=== PATIENT | female | born 2005 | race Caucasian/White ===

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

== ENCOUNTER 2024-09-22 17:14 | Inpatient (IN) | payer OTHER, SELFPAY ==
[2024-09-22] VITALS (53 sets, daily range): BP systolic 112–163; BP diastolic 60–95; PULSE 74–131; TEMP 36.4–36.6; O2SAT 98–100; BMI 31.4
--- OUTSIDE RECORDS SUMMARY | 2024-09-22 17:40 | XMS_ITS | Encounter Summary ---
Author Organization [facility] Address [address] [place] [address] Phone Care Team Providers Care Portable Pinch Riveter Name Role Phone María Altman MD Primary Care Provider + Reason for Visit * Reason Comments Medication Refill Encounter Details Date Type Department Care Team (Late st Contact Info) Description 06/30/2021 Refill [facility] Family [facility] [address] [place] [address] María Altman MD [address] [place] [address] Medication Refill Social History Tobacco Use Types Packs/Day Years Used Date Smoking Tobacco: Never Smokeless Tobacco: Never Alcohol Use Standard Drinks/Week Comments No 0 (1 standard drink = 0.6 oz pur e alcohol) PHQ-2 Answer Date Recorded Total Score - Questions 1-9 0 07/13 Sexually Active Control Partners Comments Yes Male Comments Unknown Sex and Gender Information Value Date Recorded Sex Assigned at Not on file Legal Sex Female 1:31 PM COMPO CASTER Gender Identity Not on file Sexual Orientation Not on file COVID-19 Exposure Response Date Recorded In the last month, have you been in contact with someone who was confirmed or suspected to have Coronavirus / COVID-19? No / Unsure 06/17/2021 9:26 AM COMPO CASTER documented as of this encounter Miscellaneous Notes * Telephone Encounter - Jenise Zambrano - 07/01/2021 10:45 AM CST Mom informed RX called into patients pharmacy. Mom stated she would call back and set up an appointment for next month. O CASTER * Telephone Encounter - María Altman MD - 07/01/2021 9:51 AM COMPO CASTER Jenise, pt needs appt. Has not been seen in a year I believe. This is a medication for a chronic issue- so at the very least, I need to see her for asthma follow up. Thank you! I did refill the medication. O CASTER documented in this encounter Plan of Treatment Not on file documented as of this encounter Visit Diagnoses Not on filedocumented in this encounter Additional Health Concerns Assessment Noted Time PHQ-9 Depression Total Score: 0 07/24/19 21 1:00 PM COMPO CASTER documented as of this encounter Care Teams Portable Pinch Riveter Relationship Specialty Start Date End Date María Altman MD PCP - General Pediatrics 05/29/17 07/26/23 documented as of this encounter
--- OUTSIDE RECORDS SUMMARY | 2024-09-22 17:40 | XMS_ITS | Encounter Summary ---
Author Organization [facility] Address [address] [place] [address] Phone Care Team Providers Care Automated Equipment Engineer Technician Name Role Phone María Altman MD Primary Care Provider + Reason for Visit * Reason Comments Medication Refill Encounter Details Date Type Department Care Team (Late st Contact Info) Description [facility] [address] [place] [address] María Altman MD [address] [place] [address] Medication Refill Social History Tobacco Use Types Packs/Day Years Used Date Smoking Tobacco: Never Smokeless Tobacco: Never Alcohol Use Standard Drinks/Week Comments No 0 (1 standard drink = 0.6 oz pur e alcohol) Sexually Active Control Partners Comments Yes Male Comments Unknown Sex and Gender Information Value Date Recorded Sex Assigned at Not on file Legal Sex Female 1:31 PM AADC PLANS STAFF OFFICER Gender Identity Not on file Sexual Orientation Not on file documented as of this encounter Miscellaneous Notes * Telephone Encounter - Jenise Zambrano - 12/21/2019 2:15 PM CDT Voicemail left for mom stating patient needs to be seen in the office before prescriptions will be refilled. * Telephone Encounter - María Altman MD - 12/20/2019 12:48 PM CDT Pt had appointment but it was either cancelled or pt no showed. Needs another one before refill is sent. * Telephone Encounter - Shakira Craig, RN - 12/20/2019 9:13 AM CDT Requested Prescriptions Pending Prescriptions Disp Refills FLUoxetine (PROZAC) 10 MG Capsule [Pharmacy Med Name: FLUOXETINE HCL 10 MG CAPSULE] 90 Cap 0 Sig: Take 1 Cap by mouth daily. Not Delegated - Psychiatry: Antidepressants Failed - 12/19/2019 5:10 PM Failed - This refill cannot be delegated Passed - Valid encounter within last 12 months Past Office Visits Recent Outpatient Visits None Upcoming Appointments documented in this encounter Plan of Treatment Not on file documented as of this encounter Visit Diagnoses Not on filedocumented in this encounter Additional Health Concerns Assessment Noted Time PHQ-9 Depression Total Score: 0 05/29/20 17 9:00 AM AADC PLANS STAFF OFFICER documented as of this encounter Care Teams Automated Equipment Engineer Technician Relationship Specialty Start Date End Date María Altman MD PCP - General Pediatrics 05/29/17 07/26/23 documented as of this encounter
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
--- OUTSIDE RECORDS SUMMARY | 2024-09-22 17:41 | XMS_ITS | Data Portability ---
Author Organization [facility] Address [address] [place] [address] [place] [address] Assessment Encounter Date Assessment Date Assessment LastModified by Organization Details LastModified Time 08/12/2024 08/12/2024 Patient is __30_weeks . Discussed plan. [email or web address] Not available 08/12/2024 17:13:17 08/26/2024 08/26/2024 Patient is _32__weeks . Discussed plan. Not available 08/26/2024 12:56:40 09/02/2024 09/02/2024 Patient is _33__weeks . Discussed plan. [email or web address] Not available 09/02/2024 16:10:44 Plan of Treatment Reminders Order Date Submit Date Provider Last Modified By Organization Details Last Modified Time Details Appointments OB ROUTINE 2024 11:30A M Zara Larsen CNM Not available Not available Not available Lab None recorded. Referral None recorded. Procedures None recorded. Surgeries None recorded. Imaging US, obstetric , limited [email or web address], [address], [place], [address], 09/02/2024 18:02:25 US, obstetric , follow-up 2024 025 [email or web address] [facility], [address], [place], [address], 08/27/2024 22:46:33 Medication Orders hydrocodo ne 5 mg-acetam inophen 325 mg tablet 2024 025 [facility] #[id number], [address], [place], [address], 09/02/2024 15:41:17 Patient TargetsNo targets recorded. Patient InstructionsNo instructions recorded. Reason for Referral None Reported. Results Created Date Observation Date Name Description Value Unit Range Abnormal Flag Note LastModifiedBy Organization Detail LastModifiedTime 07/27/1907/27/2024 GTT - SUYAPAA ISAREL Hays, ACOG OB glucose, 1 hour screen 135 mg/dL 70-135 Not Available [facility] (Lab) [address], [place], [address], 07/28/2024 13:49:06 07/27/19 25 07/27/2024 HEMOG LOBIN (HGB) HGB 10.3 g/dL (based on docume nted legal sex) 11.6-1 5.4 low Not Available [facility] (Lab) [address] [place], [address], 07/28/2024 13:49:07 07/27/19 25 07/27/2024 HEMAT OCRIT (HCT) HCT 31.5 % (based on docume nted legal sex) 34.0-4 5.0 low Not Available [facility] (Lab) [address] [place], [address], 07/28/2024 13:49:07 07/27/19 25 07/27/2024 HIV 1/2 ANTIG EN/AN TIBOD Y, REFLE X CONFI RMATI ON HIV antigen/anti body Nonrea ctive nonrea ctive HIV-1 antig en and HIV-1 /HIV- 2 antib odies were not detec kinjal. No labor atory evide nce of HIV infec tion. Not Available [facility] (Lab) [address], [place], [address], 07/28/2024 13:49:08 07/27/19 25 07/27/2024 RPR SCREE N, REFLE X TITER /CONF IRMAT ION RPR screen Nonrea ctive nonrea ctive Not Available [facility] (Lab) [address], [place], [address], 07/28/2024 13:49:08 08/26/19 25 08/26/2024 US, obste tric, follo w-up No observ ation record ed. [facility] [address], [place], [address], 08/26/2024 17:10:18 08/26/19 25 08/26/2024 US, obste tric, follo w-up No observ ation record ed. [email or web address], [place], [address], 08/27/2024 23:08:28 09/02/19 25 09/02/2024 US, obste tric, limit ed No observ ation record ed. [email or web address] [address], [place], [address], 09/05/2024 23:23:05 09/02/19 25 09/02/2024 US, obste tric, limit ed No observ ation record ed. [facility] [address], [place], [address], 09/02/2024 17:56:21 Result Notes None recorded. Problems Name Problem SNOMED Code Status Onset Date Resolution Date Notes Provider Name and Address Organization Details Recorded Time Pregnanc y 53545926 Completed 202008/05/2021 Lolita shepherd [facility] 4 15:38:14 Asthma 537097271 Completed Marlys shepherd [facility] 2 10:34:27 Asthma 210309739 Active Marlys shepherd [facility] 2 10:34:27 Teenage pregnanc y 982750631 Completed 2020 Marlys Averykatiajerry colunga [facility] 2 10:34:27 Iron deficien cy anemia of pregnanc y 218453006 Completed 2020 IV iron - 05/24, r/s 06/03 inf to 06/04or 4 @ [facility] Marlys Averykaitajerry colunga [facility], [facility] 2 10:34:27 Pregnanc y 05572522 Completed 202203/30/2023 Lolita Costello [facility] 4 15:38:14 Anxiety in pregnanc y 2491821386 9109 Completed [facility] Shmuelyamil Fullerle [facility] 3 17:04:31 ultrasou nd scan abnormal 8013315204 9109 Completed EIF Shmuelyamil LepeBing [facility] 3 17:04:31 Large for gestatio n age fetus 646566144 Completed 96% 32w, 94%/97% AC at 36w) Shmuelyamil Fullerle [facility] 3 17:04:31 Anemia 848515759 Completed Iv iron order sent 01/19 and labs complete d Smhuelyamil LepeBing [facility] 3 17:04:31 Hypothyr oidism 94402426 Completed 2022 [facility] 25[facility]g [facility] 17:04:31 Mixed anxiety and depressi ve disorder 037327346 Active 2023 Lolita Costello [facility], [facility] 4 09:53:40 Pregnanc y 10185875 Active 2023 Lolita Costello [facility], [facility] 15:38:13 Anxiety 84726556 Active no current meds Zara Larsen CNM [address], [place], [address], [facility] 16:44:54 Large for gestatio n age fetus 205598256 Active history Zara Larsen CNM [address], [place], [address], [facility] 16:45:59 Problem Notes None recorded. Procedures Surgical History None recorded. Imaging Results Imaging Date Name Status LastModified by Organiz ation Details LastModified Time 08/26/2024 US, obstetric, follow-up completed [facility] [address], [place], [address], 08/26/2024 17:10:18 08/26/2024 US, obstetric, follow-up completed [email or web address], [place], [address], 08/27/2024 23:08:28 09/02/2024 US, obstetric, limited completed [email or web address] [address], [place], [address], 09/05/2024 23:23:05 09/02/2024 US, obstetric, limited completed [place] [address], [place], [address], 09/02/2024 17:56:21 Procedure Notes None recorded. Medical Equipment None Reported. Allergies Allergen ID Allergen Name Allergen Category Reaction Reaction Severity Criticality Documentation Date Start Date Code Code System Note Provider Name and Address Organization Details Recorded Time 68385 Substance with sulfonami de structure and antibacte rial mechanism of action (substanc e) medicatio n Not available Not available Not available 05/07/2021 [address] [address] [place], [place] - [facility] 16:39:08 Medications Name Sig Start Date Stop Date Status Note LastModified by Organization Details LastModified Time hydrocodone 5 mg-acetamin ophen 325 mg tablet TAKE 1 TABLET BY MOUTH EVERY 6 HOURS NEEDED FOR PAIN 09/02 completed Not Available Not Available Not Available metronidazo le 500 mg tablet TAKE 1 TABLET BY MOUTH 2 TIMES A DAY FOR 7 DAYS. DO NOT DRINK ALCOHOL WITH THIS MEDICATIO N. 02/16 completed Not Available Not Available Not Available levothyroxi ne 25 mcg tablet TAKE 1 TABLET BY MOUTH EVERY DAY 09/28 completed Not Available Not Available Not Available ofloxacin 0.3 % ear drops PLACE 5 DROPS IN AFFECTED EAR EVERY DAY FOR 7 DAYS 02/16 completed Not Available Not Available Not Available amoxicillin 875 mg tablet TAKE 1 TABLET BY MOUTH TWICE A DAY FOR 7 DAYS 02/16 completed Not Available Not Available Not Available triamcinolo ne acetonide 0.025 % topical cream APPLY A THIN LAYER TO AFFECTED AREA(S) TWICE DAILY 03/09 completed Not Available Not Available Not Available doxycycline monohydrate 100 mg capsule TAKE 1 CAPSULE BY MOUTH TWICE A DAY FOR 7 DAYS-NO SEXUAL INTERCOUR SE FOR 7DAYS & MEDICATIO N COMPLETE 02/16 completed Not Available Not Available Not Available fluoxetine 10 mg capsule TAKE 1 CAPSULE BY MOUTH EVERY DAY 11/20 completed Not Available Not Available Not Available albuterol sulfate HFA 90 mcg/actuati on aerosol inhaler 09/28 completed Not Available Not Available Not Available ondansetron 4 mg disintegrat ing tablet 09/28 completed Not Available Not Available Not Available sertraline 50 mg tablet TAKE 1 TABLET BY MOUTH EVERY DAY 02/23 completed Not Available Not Available Not Available doxycycline hyclate 100 mg tablet TAKE 1 TABLET BY MOUTH TWICE A DAY 03/25 completed Not Available Not Available Not Available buspirone 15 mg tablet TAKE 1 TABLET BY MOUTH TWICE A DAY active Not Available Not Available No t Available Vitamin 27 mg iron-0.8 mg tablet TAKE 1 TABLET BY MOUTH EVERY DAY 09/28 completed Not Available Not Available Not Available azithromyci n 500 mg tablet TAKE 2 TABLETS BY MOUTH ONCE FOR DOSE 02/16 completed Not Available Not Available Not Available escitalopra m 10 mg tablet TAKE 1 TABLET BY MOUTH EVERY DAY 08/05 completed Not Available Not Available Not Available nitrofurant oin monohydrate /macrocryst als 100 mg capsule 09/28 completed Not Available Not Available Not Available Flovent HFA 110 mcg/actuati on aerosol inhaler 09/28 completed Not Available Not Available Not Available 09/28 completed Not Available Not Available Not Available Triveen-Duo DHA 29 mg-1 mg-400 mg oral pack Take 1 pack by oral route. 01/04 completed Not Available Not Available Not Available 28 mg iron-800 mcg tablet 01/04 completed Not Available Not Available Not Available Blisovi 24 Fe 1 mg-20 mcg (24)/75 mg (4) tablet TAKE 1 TABLET BY MOUTH EVERY DAY 03/25 completed Not Available Not Available Not Available Vitals Date Recorded Body height Body mass index (BMI) Percentile per age and sex Body mass index (BMI) Body weight Systolic blood pressure Diastolic blood pressure Provider Name and Address Organization Details Last Updated DateTime 5 149.86 cm 96.72 % 34.9 kg/m2 01538.4 8001 g 110 mm[Hg] 74 mm[Hg] Lolita Costello [facility] 5 16:12:53 Date Recorded Body weight Body mass index (BMI) Percentile per age and sex Body mass index (BMI) Body height Systolic blood pressure Diastolic blood pressure Provider Name and Address Organization Details Last Updated DateTime 5 14785.6 6475 g 96.91 % 35.3 kg/m2 149.86 cm 114 mm[Hg] 72 mm[Hg] Lolita Costello [facility] 5 12:38:11 Date Recorded Body weight Systolic blood pressure Diastolic blood pressure Provider Name and Address Organization Details Last Updated DateTime 09/02/2024 26585.2571 2 g 107 mm[Hg] 72 mm[Hg] Lolita Costello [facility] 09/02/2024 15:40:18 Social History Question Answer Notes LastModified by Organizat ion Details LastModified Time Tobacco Smoking Status Never Smoker Lolita Costello [facility] 03/09/2023 16:02:28 Do You Have An Advance Directive? No [email or web address] Information n ot available 08/05/2022 What Is Your Level Of Alcohol Consumption? None [email or web address] Information not available 08/05/2022 If You Are , What Was Your Level Of Alcohol Consumption Prior To ? Occasional Information not available 03/23/2024 Are You Blind Or Do You Have Difficulty Seeing? No [email or web address] Information n ot available 08/05/2022 What Is Your Level Of Caffeine Consumption? Occasional [email or web address] Information not available 08/05/2022 How Much Tobacco Do You Chew? None [email or web address] Information not available 08/05/2022 In The 14 Days Before Symptom Onset, Have You Had Close Contact With A Laboratory-confirm ed COVID-19 While That Case Was Ill? No [email or web address] Information n ot available 08/05/2022 In The 14 Days Before Symptom Onset, Have You Had Close Contact With A Person Who Is Under Investigation For COVID-19 While That Person Was Ill? No [email or web address] Information not available 08/05/2022 Have You Been To An Area Known To Be High Risk For COVID-19? No [email or web address] Information not available 08/05/2022 Are You Deaf Or Do You Have Serious Difficulty Hearing? No [email or web address] Information not available 08/05/2022 What Type Of Diet Are You Following? REGULAR [email or web address] Information n ot available 08/05/2022 What Is The Highest Grade Or Level Of School You Have Completed Or The Highest Degree You Have Received? WH75618-8 [email or web address] Information not available 08/05/2022 What Is Your Occupation? Child [email or web address] Information not available 08/05/2022 Are There Any Guns Present In Your Home? No [email or web address] Information not available 08/05/2022 Do You Use Protection During Sex? No [email or web address] Information not available 08/05/2022 Do You Use Your Seat Belt Or Car Seat Routinely? Yes [email or web address] Information not available 08/05/2022 Do You Have Smoke And Carbon Monoxide Detectors In Your Home? Yes [email or web address] Information not available 08/05/2022 How Much Tobacco Do You Smoke? No [email or web address] Information not available 08/05/2022 Do You Feel Stressed (tense, Restless, Nervous, Or Anxious, Or Unable To Sleep At Night)? [id number] [email or web address] Information not available 08/05/2022 Do You Use Any Illicit Or Recreational Drugs? No [email or web address] Information not available 08/05/2022 Do You Use Sunscreen Routinely? No [email or web address] Information not available 08/05/2022 Have You Used IV Drugs? No [email or web address] Information not available 08/05/2022 Sex: Unknown Functional Status Question Answer Note LastModified by Organizat ion Details LastModified Time Do you have difficulty walking or climbing stairs? No Information not available 03/09/2023 Are you able to walk? YESWOREST [email or web address] Information not available 08/05/2022 Are you able to care for yourself? Yes [email or web address] Information not available 03/09/2023 Do you have difficulty dressing or bathing? No [email or web address] Information not available 03/09/2023 What is your exercise level? None [email or web address] Information not available 09/29/2023 Mental Status None recorded. Family History Relationship Description Onset Age of this Age Resolved Age Notes LastModified by Organization Details LastModified Time Father Asthma [email or web address] Not available 01/07/2023 09:45:47 Maternal Grandmother Diabetes mellitus [email or web address] Not available 01/07 09:45:47 Maternal Grandmother Hypertensive disorder [email or web address] Not available 01/07 09:45:47 Maternal Grandfather Malignant tumor of lung [email or web address] Not available 01/07 09:45:47 Maternal Uncle Seizure Not available 03/09/20 15:39:37 Medical History Condition Response Allergies (Food, seasonal, environmental ) Y Other N Breast Cancer N Drug/Latex Allergies/Reactions Y Blood Transfusion N Dermatologic Disorders N Lung Disease N Defects or Inherited Disease N Breast Problem N Gestational Diabetes N Hematologic disorders N Anesthesia Complications N History of STI N Deep Vein Thrombosis N Polycystic ovary syndrome N Anxiety Disorder Y Autoimmune disease N Arthritis N Infertility N Polyps N Acid Reflux (GERD) N History of abnormal pap N Cancer N Stroke N Varicosities N Neurologic/Epilepsy N Endometriosis N High Cholesterol N Headaches N Fibromyalgia N Kidney Disease N Heart Problems N Kidney or Bladder Problems N Thyroid Problems N GI Problems N Eating Disorder N Anemia N Art (IVF or FET) N Psychiatric Illness N Ovarian Cancer N Diabetes N Pulmonary (TB, Asthma) N Hepatitis/Liver Disease N No Past Medical History N Eczema N Urinary Tract Infection N Abuse/Domestic Violence N Asthma Y Trauma/Violence N Depression/ depression Y Heart Disease N Pre-Eclampsia N Hypertension N Osteoporosis N Thrombophilias N Gynecological History Statement/Question Response Date of Last Mammogram Date of LMP N Was last menstrual period normal Y STIs/STDs N Date of Last Colonoscopy Desired Control Method Unknown Abnormal Pap N On BCP's at Conception? N HPV Vaccine Y Duration of Flow (days) 5 Current Control Method Age at First Child 15 Are cycles usually normal N Frequency of Cycle (Q days) 28 Sexually Active? Y Menses Monthly N Date of DEXA bone scan Age of first menstrual cycle 11 Date of Last Pap Smear Sexual Problems? N LMP Unknown N Obstetrics History GPAL:G 3 P 2 0 0 2 Type Value Full Term 2 Living 2 Total 3 Past Encounters Encounter ID Performer Location Encounter Start Date Encounter Closed Date Diagnosis/Indication Diagnosis SNOMED-CT Code Diagnosis ICD10 Code Diagnosis Note [id number] Kate Mckeon [facility] [address] [address] 11/20/2020 12:17:29 11/20/2020 14:38:54 test positive 487033557 Z32.01 Risk factors addressed: Tobacco Cessation, Safe Sexual Practices, environmen amador, work hazards, travel restrictio ns, seat belt use. Eat a health well balanced diet, avoid alcohol, tobacco, and street drugs. Engage in daily low impact exercise, avoid temperatur e extremes, and cat, rodent, and bird feces. Avoid travel to areas where zika virus is a concern. Offered cf/sma/nip t. Pt desires all 3. Handouts given and discussed with patient. Childbirth classes recommende d. Dating u/s today. New OB sheet given. If previous , counseling . Pt verbalizes that she understand s the importance of above instructio ns. All questions were answered. Patient reminded to have annual well woman examinatio n and address [facility] . [id number] [facility] [address],[place] [address] 11/20/2020 12:25:39 11/20/2020 14:38:43 Uncertain viability of 687605647 O36.80X0 Z3A.01 [id number] Ирина Robbins MD [facility] [address],[place] [address] 01/04/2021 14:47:47 01/05/2021 21:54:47 Routine care 598795161 Z34.91 Asthma in 7230 986989 6965 J45.909 [id number] [facility] [address],[place] [address] 01/04/2021 14:48:24 01/04/2021 15:48:59 screening 577597269 Z36.82 [id number] Ирина Robbins MD [facility] [address],[place] [address] 01/30/2021 15:58:31 01/30/2021 17:25:40 Routine care 492344191 Z34.91 Teenage 676646 001 O09.619 [id number] [facility] [address],[place] [address] 02/26/2021 16:29:06 02/27/2021 10:26:33 screening for malformation 601245688 Z36.3 [id number] Ирина Robbins MD [facility] [address],[place] [address] 02/26/2021 16:29:31 02/27/2021 10:55:22 Teenage 741780794 O09.619 Routine an tenatal care 877145366 Z34.91 [id number] Ирина Robbins MD [facility] [address],[place] [address] 04/09/2021 16:28:16 04/10/2021 16:01:04 Teenage 340358303 O09.619 Asthma 402975414 J45.90 9 [id number] Ирина Robbins MD [facility] [address],[place] [address] 04/26/2021 14:32:13 04/26/2021 15:37:34 Routine care 219711368 Z34.91 Vaccination not done 203 0674427 9108 Z28.9 Asthma in 7230 520779 7586 J45.909 [id number] Christel Diallo [facility] [address],[place] [address] 05/02/2021 16:26:24 05/02/2021 17:09:05 [id number] [facility] [address],[place] [address] 05/14/2021 16:15:22 05/14/2021 17:52:25 Routine care 110805660 Z34.93 [id number] Ирина Robbins MD [facility] [address],[place] [address] 05/21/2021 16:34:16 05/21/2021 17:21:42 Iron deficiency anemia of 839705176 O99.019 Teenage 195986 001 O09.619 [id number] Ирина Robbins MD [facility] [address],[place] [address] 06/04/2021 18:21:56 06/05/2021 11:05:31 Teenage 147140520 O09.619 Iron defic iency anemia of 451042408 O99.019 [id number] [facility] [address],[place] [address] 06/13/2021 11:59:00 06/13/2021 13:47:09 Routine care 374145256 Z34.93 [id number] [facility] [address],[place] [address] 06/20/2021 15:27:35 06/21/2021 22:05:13 screening 256590028 Z36.9 [id number] [facility] [address],[place] [address] 06/27/2021 15:45:49 06/27/2021 16:13:08 Routine care 604556394 Z34.93 [id number] [facility] [address],[place] [address] 08/05/2021 15:48:17 08/05/2021 16:10:40 state 73106149 Z39.2 Continue to watch for signs/symp toms of post depression . Return one year from last pap smear for a well woman exam. Patient received above instructio ns, and questions have been answered. If you have any questions please call or respond to this email. Patient was made aware of the patient portal and may obtain a paper copy of today's plan if desired Contracept ion care management 508810069 Z30.9 Discussed all control options in great detail. Pt would like to start ocp. She is aware of the risks and benefits. She does not have any medical condition that is contraindi cated with the use of estrogen containing control. Pt will start her pills on the first thursday following the start of her period. She is aware it is not effective for control the first month. She is also aware of the importance of taking at the same time every day. Encouraged use of condoms as the pill does not protect against STD's. Will return in 3 months for med check. Consent was read and signed. Pt verbalized understand ing. [id number] Ирина Robbins MD [facility] [address],[place] [address] 03/25/2022 11:51:36 03/25/2022 14:05:56 depression 95627022 F53.0 Contracept ion care management 270273994 Z30.9 [id number] Christel Diallo [facility] [address],[place] [address] 08/05/2022 15:44:23 08/05/2022 17:23:49 Uncertain viability of 759950970 O36.80X0 Z3A.01 [id number] [facility] [address] [address] 08/05/2022 15:44:45 08/06/2022 17:21:58 Amenorrhea 53185974 N91.2 Venereal d isease screening 882055228 Z11.3 Anxiety 30471792 F41.9 Pt has a history of anxiety. Conservati ve measures have not helped and pt desires treatment with medication . We discussed options in detail and pt would like to start buspar. We discussed specific taper dosing and handout given and explained. Pt denies any thoughts of harming herself or others. If any worsening of symptoms or s/e from medication , she will notify us. Plan to RTC 2 weeks for med check. test positive 250963890 Z32.01 Risk factors addressed: Tobacco Cessation, Safe Sexual Practices, environmen amador, work hazards, travel restrictio ns, seat belt use. Eat a health well balanced diet, avoid alcohol, tobacco, and street drugs. Engage in daily low impact exercise, avoid temperatur e extremes, and cat, rodent, and bird feces. Avoid travel to areas where zika virus is a concern. Offered cf/sma/nip t. Pt desires NIPT at 10 weeks. Handouts given and discussed with patient. Childbirth classes recommende d. New OB sheet given. If previous , counseling . Pt verbalizes that she understand s the importance of above instructio ns. All questions were answered. Patient reminded to have annual well woman examinatio n and address [facility] . [id number] Kate Mckeon [facility] [address],[place] [address] 08/19/2022 16:48:46 08/19/2022 17:29:18 Anxiety 32161697 F41.9 Discussed treatment with zoloft including risks and benefits. Pt would like to start. Will return in 2 weeks for med check or sooner if any worsening of symptoms. [id number] Kate Mckeon [facility] [address] [address] 09/01/2022 16:46:09 09/03/2022 11:43:16 Routine care 551928280 Z34.93 Anxiety 40290489 F41.9 Discussed options with patient. She does want to try zoloft again but with food. If she is unable to tolerate, I have asked her to call us. If she is doing well with medication we can follow up in 2 weeks. [id number] Ирина Robbins MD [facility] [address],[place] [address] 09/15/2022 16:09:01 09/16/2022 16:36:29 Routine care 145525985 Z34.91 [id number] [facility] [address],[place] [address] 09/15/2022 16:12:10 09/15/2022 16:34:49 screening 892940237 Z36.82 [id number] Ирина Robbins MD [facility] [address],[place] [address] 10/13/2022 16:00:36 10/14/2022 10:05:58 Routine care 899951566 Z34.91 [id number] [facility] [address],[place] [address] 11/10/2022 15:49:58 11/10/2022 17:05:47 screening for malformation 160037443 Z36.3 [id number] Ирина Robbins MD [facility] [address],[place] [address] 11/10/2022 15:50:17 11/10/2022 17:52:24 Routine care [id number] Z34.91 ultr asound scan abnormal [id number] 9109 O28.3 Large for gestation age fetus 782665166 O36.62X1 [id number] Christel Lovell [facility] [address],[place] [address] 12/09/2022 16:29:32 12/09/2022 17:31:28 ultrasound scan abnormal [id number] 9109 O28.3 O36.61X0 Z3A.24 [id number] Ирина Robbins MD [facility] [address],[place] [address] 12/09/2022 16:29:46 12/10/2022 15:31:15 Large for gestation age fetus 633657494 O36.62X1 Routine an tenatal care 666481387 Z34.91 [id number] [facility] [address],[place] [address] 01/07/2023 09:02:07 01/07/2023 10:04:25 Large for gestation age fetus 624630703 O36.63X0 Z3A.28 [id number] Zara Larsen [facility] [address],[place] [address] 01/07/2023 09:02:26 01/07/2023 10:06:32 Routine care 436545652 Z34.93 [id number] Ириан Robbins MD [facility] [address],[place] [address] 01/19/2023 16:36:00 01/20/2023 10:25:44 Anemia of 22508856 O99.019 Subclinica l hypothyroidism 62808518 E02 [id number] [facility] [address],[place] [address] 02/02/2023 16:28:17 02/02/2023 17:28:59 Large for gestation age fetus 770081581 O36.63X0 O99.283 Z3A.32 [id number] Ирина Robbins MD [facility] [address],[place] [address] 02/02/2023 16:28:31 02/03/2023 11:02:01 Large for gestation age fetus 122841051 O36.63X0 O99.283 Z3A.32 54462115 Z33.1 [id number] Ирина Robbins MD [facility] [address],[place] [address] 02/16/2023 16:23:24 02/16/2023 16:57:30 Routine care 793589208 Z34.91 Large for gestation age fetus 236853026 O36.63X0 O99.283 Z3A.32 [id number] Christel Diallo [facility] [address],[place] [address] 03/02/2023 15:25:03 03/02/2023 16:33:40 Large for gestation age fetus 237869772 O36.63X0 O99.283 Z3A.36 [id number] Ирина Robbins MD [facility] [address],[place] [address] 03/02/2023 15:25:38 03/03/2023 10:36:09 Routine care 303528381 Z34.91 [id number] Ирина Robbins MD [facility] [address],[place] [address] 03/09/2023 15:39:29 03/11/2023 14:27:55 Routine care 227313427 Z34.91 [id number] Deborah Day [facility] [address],[place] [address] 09/29/2023 15:55:50 09/29/2023 16:37:38 Mixed anxiety and depressive disorder 792484780 F41.8 Discussed depression /anxiety symptoms today and management options reviewedsh e would like to start pharmacolo gic management : rx sent for sertraline , r/b/a reviewedco unseling encouraged - handout given on local counselors precaution s reviewed (if thoughts of harming self or others occur call 911)encour aged healthy lifestylem ed check in 4-6 weeks Contracept ion care management 955328605 Z30.9 All BC methods discussedi nt in mirena IUDr/b/a reviewedha ndout givencall with next period for insertion Time spent in visit is a total of 25 mins with at least 50% of visit consisting of counseling and review of plan of care. [id number] Iris Rodriguez [facility] [address],[place] [address] 02/17/2024 09:20:20 02/17/2024 09:51:42 screening 932258469 Z36.87 Z3A.01 [id number] [facility] [address],[place] [address] 02/17/2024 09:20:46 02/17/2024 10:11:25 Amenorrhea 91668985 N91.2 Venereal d isease screening 545070657 Z11.3 Irregular periods 679122 07 N92.6 +UPTcheck labsrepeat US next week [id number] Iris Rodriguez [facility] [address],[place] [address] 02/24/2024 16:59:13 02/25/2024 12:22:45 [id number] [facility] [address],[place] [address] 02/24/2024 17:20:28 02/25/2024 12:22:04 Amenorrhea 83745789 N91.2 reviewed precaution s and educationp ap not collectedp renatal vitamin dailyf/u new ob and first look10 week NIPS Venereal d isease screening 829729502 Z11.3 [id number] [facility] [address],[place] [address] 03/23/2024 15:25:22 03/23/2024 16:07:52 [id number] [facility] [address],[place] [address] 03/23/2024 15:26:19 03/23/2024 16:49:42 Gestation period, 10 weeks 98067510 Z3A.10 continue vitamin [facility]ine [facility] 341146582 Z34.93 [id number] [facility] [address],[place] [address] 04/05/2024 15:34:31 04/05/2024 16:06:40 screening 993322176 Z36.82 Z3A.12 [id number] [facility] [address],[place] [address] 04/20/2024 17:44:51 04/21/2024 07:48:39 Gestation period, 14 weeks 87780067 Z3A.14 continue vitamin [id number] Zara Larsen CNM [facility] [address],[place] [address] 05/13/2024 15:01:43 05/13/2024 16:04:03 Gestation period, 17 weeks 01338859 Z3A.17 continue vitamin [id number] [facility] [address],[place] [address] 06/01/2024 16:46:08 06/02/2024 12:58:40 screening for malformation 714023657 Z36.3 Z3A.20 [id number] [facility] [address],[place] [address] 06/01/2024 16:46:26 06/02/2024 12:24:19 Gestation period, 20 weeks 41021332 Z3A.20 continue vitamin [id number] [facility] [address],[place] [address] 06/29/2024 15:19:21 06/29/2024 16:09:46 screening 885989672 Z36.2 Z3A.24 [id number] FAYE EDWARD MD [facility] [address],[place] [address] 06/29/2024 15:19:41 06/29/2024 16:30:44 Mixed anxiety and depressive disorder 624622927 F41.8 - mood stable- no meds Gestation period, 24 weeks 718552671 Z3A.24 - continue PNV [id number] [facility] [address],[place] [address] 07/27/2024 16:26:41 07/27/2024 17:12:31 Gestation period, 28 weeks 46475554 Z3A.28 continue vitamin [id number] Zara Larsen CNM [facility] [address],[place] [address] 08/12/2024 15:57:23 08/15/2024 05:45:48 Gestation period, 30 weeks 36943469 Z3A.30 Toothache 90959600 K08.8 9 [id number] [facility] [address],[place] [address] 08/26/2024 11:09:29 08/26/2024 12:37:02 Large for gestation age fetus 166078009 O36.63X0 Z3A.32 [id number] Zara Larsen [facility] [address],[place] [address] 08/26/2024 11:09:45 08/26/2024 13:30:17 Gestation period, 32 weeks 7568503 Z3A.32 continue vitamin [id number] [facility] [address],[place] [address] 09/02/2024 14:13:54 09/02/2024 17:01:24 Suspected abnormality affecting management of mother [id number] O35.8XX0 Z3A.33 [id number] Zara Larsen, [facility] [address],[place] [address] 09/02/2024 14:14:16 09/02/2024 16:24:22 Gestation period, 33 weeks 91931498 Z3A.33 continue vitamin Health Concerns Section Related Observation LastModified by Organization Detai ls LastModified Time None Recorded Concern Status LastModified by Organization Details LastModified Time None Recorded Advance Directives Directive N: Payers Encounter Date Sequence Insurance Name Policy Number Policy Chapa Covered Member ID Chapa Member ID Guarantor Name 08/12/2024 1 [employer] [facility] [facility] [place] ([place] [id number] Zully Kudelka [id number] Zully Kudelka 08/26/2024 1 [employer] [facility] [place] [id number] Zully Kudelka [id number] Zully Kudelka 08/26/2024 1 [employer] [facility] [place] [id number] Zully Kudelka [id number] Zully Kudelka 09/02/2024 1 [facility] (MEDICAID HMO) [id number] 0003 Zully Kudelka [id number] Zully Kudelka 09/02/2024 1 [facility] (MEDICAID HMO) [id number] 0003 Zully Kudelka [id number] Zully Higuera OBGyn Episode Ob Episode Information Episode Created Date Number of Fetuses Patient Bloodtype Patient rh Status Prepregnancy Weight lbs Domestic Partner Domestic Partner Phone Father Name Researcher Status 01/05/20 21 1 AB Positive 169 CLOSED Fetus Data First Name Last Name Admitted to NICU Weight (g) Sex Living Outcome Pediatric Complications Fetus ID Race Codes Race Delivery Type [place] lobo 3543.68 75 F true Full Term [id number] Vaginal Delivery Problems Problem Notes Robbins pt!declines COVID vac cine Problem Name Start Date End Date Resolution Snomed Code Not e Asthma 213989136 Teenage 01/30/2021 772054673 Iron deficiency anemia of 05/15/2021 816604193 IV iron - 05/24 , r/s 06/03 inf to 06/04or24 @ [facility] Edward Calculation Initial Edward Date Initial Exam Date Initial Exam Provider Initial Ultrasound Date Last Menstrual Period Date Ultra Sound Weeks Gestation 07/12/2021 01/04/2021 11/20/2020 6 Eighteen To Twenty Week Edward Update Ultra Sound Date Fundal Height At Umbil Quickening Date Ultra Sound Latest Weeks Gestation Final Edward Confirmed By Final Edward Confirmed Date Final Edward Date Ultra Sound Latest Days Gestation 0 [email or web address] 01/04/2021 07/12/20 21 0 Pre-lidia Flowsheet Flowsheet Date 01/04/2021 Alexander Score Blood Edema Fundus Height Fundus Units Glucose Ketones Leukocytes Nitrite Labor Signs Protein Cervic Dilation Cervic Effacement Cervic Station neg none trace Type Weight in lbs Pre/Post Dialysis Refused Weight 159.066448568019 BP Diastolic BP Location Tested BP Systolic BP Type 75 124 Fetus Heart Rate Present A 160 Fetus Movement A No Comments Katy is a 15yo G1 at 13 w eeks who presents for care. Labs and NIPT done today. complicated only by history of asthma, for which she hasn't used albuterol in years. Discussed sometimes asthma worsens in , new albuterol HFA sent. Is lactose intolerant, recommended she add calcium supplementation to her PNV. Routine care. Flowsheet Date 01/04/2021 Alexander Score Blood Edema Fundus Height Fundus Units Glucose Ketones Leukocytes Nitrite Labor Signs Protein Cervic Dilation Cervic Effacement Cervic Station Type Weight in lbs Pre/Post Dialysis Refused BP Diastolic BP Location Tested BP Systolic BP Type Fetus Heart Rate Present Fetus Movement Comments Flowsheet Date 01/30/2021 Alexander Score Blood Edema Fundus Height Fundus Units Glucose Ketones Leukocytes Nitrite Labor Signs Protein Cervic Dilation Cervic Effacement Cervic Station neg none trace Type Weight in lbs Pre/Post Dialysis Refused Weight 157.317345199632 BP Diastolic BP Location Tested BP Systolic BP Type 76 120 Fetus Heart Rate Present A 150 Fetus Movement A Yes Comments Feeling well. AFP today. Alison jami next visit. Flowsheet Date 02/26/2021 Alexander Score Blood Edema Fundus Height Fundus Units Glucose Ketones Leukocytes Nitrite Labor Signs Protein Cervic Dilation Cervic Effacement Cervic Station Type Weight in lbs Pre/Post Dialysis Refused BP Diastolic BP Location Tested BP Systolic BP Type Fetus Heart Rate Present Fetus Movement Comments Flowsheet Date 02/26/2021 Alexander Score Blood Edema Fundus Height Fundus Units Glucose Ketones Leukocytes Nitrite Labor Signs Protein Cervic Dilation Cervic Effacement Cervic Station neg none trace Type Weight in lbs Pre/Post Dialysis Refused Weight 160.545129442801 BP Diastolic BP Location Tested BP Systolic BP Type 73 105 Fetus Heart Rate Present A 155 Fetus Movement A Yes Comments Doing well. Feels good. Tory elizabeth today complete and wnl. Flowsheet Date 04/09/2021 Alexander Score Blood Edema Fundus Height Fundus Units Glucose Ketones Leukocytes Nitrite Labor Signs Protein Cervic Dilation Cervic Effacement Cervic Station trace 28 Type Weight in lbs Pre/Post Dialysis Refused Weight 168.503651845259 BP Diastolic BP Location Tested BP Systolic BP Type 72 116 Fetus Heart Rate Present A 29 Fetus Movement A Yes Comments Doing well. Had missed appt- UDS next visit. DIscussed and encouraged Tdap, flu, and COVID vaccines. GCT today. Asthma has been fine. PRecaution.s Flowsheet Date 04/26/2021 Alexander Score Blood Edema Fundus Height Fundus Units Glucose Ketones Leukocytes Nitrite Labor Signs Protein Cervic Dilation Cervic Effacement Cervic Station neg none 27 trace Type Weight in lbs Pre/Post Dialysis Refused Weight 170.221609706224 BP Diastolic BP Location Tested BP Systolic BP Type 74 117 Fetus Heart Rate Present A 135 Fetus Movement A Yes Comments Doing well. Asthma has been fine. UDS today. GERD- discussed OTCs. Again discussed tdap, flu,, COVID vaccines and strongly encouraged. pt is considering. GCT was wnl. uds neg slm Flowsheet Date 05/02/2021 Alexander Score Blood Edema Fundus Height Fundus Units Glucose Ketones Leukocytes Nitrite Labor Signs Protein Cervic Dilation Cervic Effacement Cervic Station Type Weight in lbs Pre/Post Dialysis Refused BP Diastolic BP Location Tested BP Systolic BP Type Fetus Heart Rate Present Fetus Movement Comments Flowsheet Date 05/14/2021 Alexander Score Blood Edema Fundus Height Fundus Units Glucose Ketones Leukocytes Nitrite Labor Signs Protein Cervic Dilation Cervic Effacement Cervic Station none 31 Type Weight in lbs Pre/Post Dialysis Refused Weight 173.774851436390 BP Diastolic BP Location Tested BP Systolic BP Type 85 129 Fetus Heart Rate Present A 143 Fetus Movement A Yes Comments Doing well. Having a girl Bernardino miranda. Has had a couple contractions. Precautions discussed. Encouraged to call and schedule pre admit. Planning epidural for pain management. Encouraged vaccines. Pt declines vaccines for now. Will start looking for pedi. Flowsheet Date 05/21/2021 Alexander Score Blood Edema Fundus Height Fundus Units Glucose Ketones Leukocytes Nitrite Labor Signs Protein Cervic Dilation Cervic Effacement Cervic Station neg none 31 trace Type Weight in lbs Pre/Post Dialysis Refused Weight 177.478530530697 BP Diastolic BP Location Tested BP Systolic BP Type 76 121 Fetus Heart Rate Present A 135 Fetus Movement A Yes Comments Doing well. Hgb was 8.8, zhanna l start slow FE and working on scheduling iron infusions. Iron panel today. Will do flu and Tdap, does not want COVID vaccine, aware of risks. She is asking about induction prior to shayla. we discussed that we cannot induce before 39w without medical reasons, so it will likely be after shayla. Flowsheet Date 06/04/2021 Alexander Score Blood Edema Fundus Height Fundus Units Glucose Ketones Leukocytes Nitrite Labor Signs Protein Cervic Dilation Cervic Effacement Cervic Station neg none 34 trace Type Weight in lbs Pre/Post Dialysis Refused Weight 181.123394715137 BP Diastolic BP Location Tested BP Systolic BP Type 75 119 Fetus Heart Rate Present A 140 Fetus Movement A Yes Comments Doing well. Second IV iron t randa. UDs next visit. Preregistration done, Labor precautions given. Flowsheet Date 06/13/2021 Alexander Score Blood Edema Fundus Height Fundus Units Glucose Ketones Leukocytes Nitrite Labor Signs Protein Cervic Dilation Cervic Effacement Cervic Station none 37 Type Weight in lbs Pre/Post Dialysis Refused Weight 179.787200896482 BP Diastolic BP Location Tested BP Systolic BP Type 70 109 Fetus Heart Rate Present A 141 Fetus Movement A Yes Comments Doing well. Occasional contr actions. Labor precautions discussed. Pre admit today. Flowsheet Date 06/20/2021 Alexander Score Blood Edema Fundus Height Fundus Units Glucose Ketones Leukocytes Nitrite Labor Signs Protein Cervic Dilation Cervic Effacement Cervic Station none 38 4cm Type Weight in lbs Pre/Post Dialysis Refused Weight 180.286399578612 BP Diastolic BP Location Tested BP Systolic BP Type 85 126 Fetus Heart Rate Present A 138 Fetus Movement A Yes Comments Doing well. Labor precaution s given. Only occasional contractions. Flowsheet Date 06/27/2021 Alexander Score Blood Edema Fundus Height Fundus Units Glucose Ketones Leukocytes Nitrite Labor Signs Protein Cervic Dilation Cervic Effacement Cervic Station none 38 4cm 70% -2 Type Weight in lbs Pre/Post Dialysis Refused Weight 180.603844693117 BP Diastolic BP Location Tested BP Systolic BP Type 77 120 Fetus Heart Rate Present A 125 Fetus Movement A Yes Comments Doing well. Occasional contr actions. Discussed labor precautions. Cervix 4-5. Menstrual History Last Menstrual Date Menses Monthly On Bcp Conception Prior Menses Frequency Hcg Plus Date Menarche Onset Age Genetic Screening And Infection History Question Response Note Mental Retardation/Autism false Patient's Age Will Be 35 Years Or Older At Estim ated Date of Delivery false Thalassemia (Citizen Of [place], Beninese, Mediterranean, Or Background): MCV < 80 false Neural Tube Defect (Meningomyelocele, Spina Bifi da, Or Anencephaly) false Congenital Heart Defect false Down Syndrome false Frank-Sachs (eg, Caodaism, Cajun, Slovenian-[place]) f alse Armando Disease false Sickle Cell Disease Or Trait () false Hemophilia Or Other Blood Disorders false Muscular Dystrophy false Cystic Fibrosis false Vulcan's Chorea false Intellectual Disability/Autism false If Yes, Was Person Tested For Fragile X? false Other Inherited Genetic Or Chromosomal Disorder false Maternal Metabolic Disorder (eg, Type 1 Diabetes , PKU) false Patient Or Baby's Father Had A Child With Defects Not Listed Above false Recurrent Loss, Or A Stillbirth false Medications (including Suppl ements, Vitamins, Herbs, OTC Drugs), Illicit/Recreational Drugs, Alcohol false If Yes, Agent(s) And Strength/Dosage false Any Other Genetic History false Live With Someone With TB Or Exposed To TB false Patient Or Partner Has History Of Genital Herpes false Rash Or Viral Illness Since Last Menstrual Perio d false History Of STD, Gonorrhea, Chlamydia, HPV, Syphi lis false Other Infection History false History of HIV false History of Hepatitis false Prior GBS-infected child false Hemoglobinopathy Or Carrier false Other Structural Defect false Recent Travel History Outside of Country false Delivery Information Delivery Date Delivery Type Labor Anesthesia Weeks Gestation Incision Type Labor Labor Length Hrs Delivered By Post Complications Tubal Sterilization Discharge Date Comments 1 Sponta neous Regional-Ep idural 38.2 false Linda Kate CNM Iron Deficienc y Anemia Discharge Information Feeding Method Contraceptive Method Maternal HG B and HCT Levels Ob Episode Information Episode Created Date Number of Fetuses Patient Bloodtype Patient rh Status Prepregnancy Weight lbs Domestic Partner Domestic Partner Phone Father Name Researcher Status 09/16/19 23 1 AB Positive 174 CLOSED Fetus Data First Name Last Name Admitted to NICU Weight (g) Sex Living Outcome Pediatric Complications Fetus ID Race Codes Race Delivery Type Adalyn 3713.78 45 F true Full Term bodyx1, E[place] [id number] Vaginal Delivery Problems Problem Notes Itzel pt Problem Name Start Date End Date Resolution Snomed Code Not e Anxiety in 208685853 74920 declines meds ultrasound scan abnormal [id number] EIF Large for gestation age fetus 000227193 96% 32w, 94%/97 % AC at 36w) Anemia 801110601 Iv iron or ernesto sent 01/19 and labs completed Hypothyroidism 01/19/2023 MEDICATION [id number] lev o 25mcg Edward Calculation Initial Edward Date Initial Exam Date Initial Exam Provider Initial Ultrasound Date Last Menstrual Period Date Ultra Sound Weeks Gestation 03/30/2023 09/15/2022 08/05/2022 6 Eighteen To Twenty Week Edward Update Ultra Sound Date Fundal Height At Umbil Quickening Date Ultra Sound Latest Weeks Gestation Final Edward Confirmed By Final Edward Confirmed Date Final Edward Date Ultra Sound Latest Days Gestation 0 [email or web address] 09/15/2022 03/30/20 23 0 Pre- Flowsheet Flowsheet Date 09/15/2022 Alexander Score Blood Edema Fundus Height Fundus Units Glucose Ketones Leukocytes Nitrite Labor Signs Protein Cervic Dilation Cervic Effacement Cervic Station neg none none trace Type Weight in lbs Pre/Post Dialysis Refused Weight 176.659756739401 BP Diastolic BP Location Tested BP Systolic BP Type 72 110 Fetus Heart Rate Present A 150 Fetus Movement A No Comments Katy is a 16yo at 12.1 for care. Her first was only complicated by anemia for which she received IV iron. She has anxiety, but is not taking medication. Was prescribed buspar and zoloft, doesn't want to take anything. States she is functional and stable without. Precautions given. Labs today. Already had NIPT wnl. Declines COVID vaccines. NT wnl. Flowsheet Date 10/13/2022 Alexander Score Blood Edema Fundus Height Fundus Units Glucose Ketones Leukocytes Nitrite Labor Signs Protein Cervic Dilation Cervic Effacement Cervic Station neg none none trace Type Weight in lbs Pre/Post Dialysis Refused Weight 176.495513020741 BP Diastolic BP Location Tested BP Systolic BP Type 78 123 Fetus Heart Rate Present A 160 Fetus Movement A No Comments Doing great, no concerns. An atomy US next visit. Flowsheet Date 11/10/2022 Alexander Score Blood Edema Fundus Height Fundus Units Glucose Ketones Leukocytes Nitrite Labor Signs Protein Cervic Dilation Cervic Effacement Cervic Station Type Weight in lbs Pre/Post Dialysis Refused BP Diastolic BP Location Tested BP Systolic BP Type Fetus Heart Rate Present Fetus Movement Comments Flowsheet Date 11/10/2022 Alexander Score Blood Edema Fundus Height Fundus Units Glucose Ketones Leukocytes Nitrite Labor Signs Protein Cervic Dilation Cervic Effacement Cervic Station neg none none trace Type Weight in lbs Pre/Post Dialysis Refused Weight 177.816848212911 BP Diastolic BP Location Tested BP Systolic BP Type 62 120 Fetus Heart Rate Present A 145 Fetus Movement A Yes Comments Doing well, no concerns. US today anatomy complete and wnl. EIF present, discussed. EFW 96%, will repeat growth 4w. Flowsheet Date 12/09/2022 Alexander Score Blood Edema Fundus Height Fundus Units Glucose Ketones Leukocytes Nitrite Labor Signs Protein Cervic Dilation Cervic Effacement Cervic Station Type Weight in lbs Pre/Post Dialysis Refused BP Diastolic BP Location Tested BP Systolic BP Type Fetus Heart Rate Present Fetus Movement Comments Flowsheet Date 12/09/2022 Alexander Score Blood Edema Fundus Height Fundus Units Glucose Ketones Leukocytes Nitrite Labor Signs Protein Cervic Dilation Cervic Effacement Cervic Station neg none none trace Type Weight in lbs Pre/Post Dialysis Refused Weight 177.317777062783 BP Diastolic BP Location Tested BP Systolic BP Type 80 118 Fetus Heart Rate Present A 155 Fetus Movement A Yes Comments Doing fine, no concerns exce pt back pain, discussed comfort measures. US today 98%, EIF stable, breech. Will continue growth US for LGA. GCT next visit. Flowsheet Date 01/07/2023 Alexander Score Blood Edema Fundus Height Fundus Units Glucose Ketones Leukocytes Nitrite Labor Signs Protein Cervic Dilation Cervic Effacement Cervic Station Type Weight in lbs Pre/Post Dialysis Refused BP Diastolic BP Location Tested BP Systolic BP Type Fetus Heart Rate Present Fetus Movement Comments Flowsheet Date 01/07/2023 Alexander Score Blood Edema Fundus Height Fundus Units Glucose Ketones Leukocytes Nitrite Labor Signs Protein Cervic Dilation Cervic Effacement Cervic Station neg none none trace Type Weight in lbs Pre/Post Dialysis Refused Weight 183.741125113428 BP Diastolic BP Location Tested BP Systolic BP Type 62 109 Fetus Heart Rate Present Fetus Movement A Yes Comments EFW 88%, EIF not visible, GC T today, ok for tdap, precautions reviewed , plan 2 week f/u and 4 week growth Flowsheet Date 01/19/2023 Alexander Score Blood Edema Fundus Height Fundus Units Glucose Ketones Leukocytes Nitrite Labor Signs Protein Cervic Dilation Cervic Effacement Cervic Station neg trace 32 none trace Type Weight in lbs Pre/Post Dialysis Refused Weight 183.233344331282 BP Diastolic BP Location Tested BP Systolic BP Type 71 116 Fetus Heart Rate Present A 130 Fetus Movement A Yes Comments Doing well. GCT wnl. Hgb 9.0 . Required IV iron in last and prefers to do that than try PO iron. Will order. Growth US next visit. Synthroid 25mcg for subclinical hypothyroidism. Flowsheet Date 02/02/2023 Alexander Score Blood Edema Fundus Height Fundus Units Glucose Ketones Leukocytes Nitrite Labor Signs Protein Cervic Dilation Cervic Effacement Cervic Station Type Weight in lbs Pre/Post Dialysis Refused BP Diastolic BP Location Tested BP Systolic BP Type Fetus Heart Rate Present Fetus Movement Comments Flowsheet Date 02/02/2023 Alexander Score Blood Edema Fundus Height Fundus Units Glucose Ketones Leukocytes Nitrite Labor Signs Protein Cervic Dilation Cervic Effacement Cervic Station neg trace 35 none trace Type Weight in lbs Pre/Post Dialysis Refused Weight 188.763913541659 BP Diastolic BP Location Tested BP Systolic BP Type 69 110 Fetus Heart Rate Present A 135 Fetus Movement A Yes Comments Doing ok. US today 96%, AC 9 8%. Last baby was7-13. IV iron starting . Has not done Tdap yet, encouraged. Precautions given. Flowsheet Date 02/16/2023 Alexander Score Blood Edema Fundus Height Fundus Units Glucose Ketones Leukocytes Nitrite Labor Signs Protein Cervic Dilation Cervic Effacement Cervic Station neg none 36 none trace Type Weight in lbs Pre/Post Dialysis Refused Weight 187.231509657449 BP Diastolic BP Location Tested BP Systolic BP Type 74 116 Fetus Heart Rate Present A 135 Fetus Movement A Yes Comments Doing well. Rare contraction s. Doing Tdap soon. Has IV iron #4 Thursday. Growth and GBS next. precautions given. Flowsheet Date 03/02/2023 Alexander Score Blood Edema Fundus Height Fundus Units Glucose Ketones Leukocytes Nitrite Labor Signs Protein Cervic Dilation Cervic Effacement Cervic Station Type Weight in lbs Pre/Post Dialysis Refused BP Diastolic BP Location Tested BP Systolic BP Type Fetus Heart Rate Present Fetus Movement Comments Flowsheet Date 03/02/2023 Alexander Score Blood Edema Fundus Height Fundus Units Glucose Ketones Leukocytes Nitrite Labor Signs Protein Cervic Dilation Cervic Effacement Cervic Station neg none none trace 5cm 50% -2 Type Weight in lbs Pre/Post Dialysis Refused Weight 191.259394830128 BP Diastolic BP Location Tested BP Systolic BP Type 74 119 Fetus Heart Rate Present A 130 Fetus Movement A Yes Comments Doing fine. COntractions las t night. Advanced cervical dilation- precautions given. Delivered at 38w last . US today 94%, AC 97%, discussed risks of LGA. GBS done and discussed. Wants 39w IOL if doesn't go early, which we suspect she will. Flowsheet Date 03/09/2023 Alexander Score Blood Edema Fundus Height Fundus Units Glucose Ketones Leukocytes Nitrite Labor Signs Protein Cervic Dilation Cervic Effacement Cervic Station neg none none trace 5cm 50% -3 Type Weight in lbs Pre/Post Dialysis Refused Weight 192.709382960969 BP Diastolic BP Location Tested BP Systolic BP Type 72 109 Fetus Heart Rate Present A 150 Fetus Movement A Yes Comments Doing fine. Cramping but not a lot of contractions. GBS neg. Will schedule 39w IOL on 03/23. Precautions. Menstrual History Last Menstrual Date Menses Monthly On Bcp Conception Prior Menses Frequency Hcg Plus Date Menarche Onset Age Genetic Screening And Infection History Question Response Note Mental Retardation/Autism false Patient's Age Will Be 35 Years Or Older At Estim ated Date of Delivery false Thalassemia (Citizen Of [place], Beninese, Mediterranean, Or Background): MCV < 80 false Neural Tube Defect (Meningomyelocele, Spina Bifi da, Or Anencephaly) false Congenital Heart Defect false Down Syndrome false Frank-Sachs (eg, Caodaism, Cajun, Slovenian-[place]) f alse Armando Disease false Sickle Cell Disease Or Trait () false Hemophilia Or Other Blood Disorders false Muscular Dystrophy false Cystic Fibrosis false Vulcan's Chorea false Intellectual Disability/Autism false If Yes, Was Person Tested For Fragile X? false Other Inherited Genetic Or Chromosomal Disorder false Maternal Metabolic Disorder (eg, Type 1 Diabetes , PKU) false Patient Or Baby's Father Had A Child With Defects Not Listed Above false Recurrent Loss, Or A Stillbirth false Medications (including Suppl ements, Vitamins, Herbs, OTC Drugs), Illicit/Recreational Drugs, Alcohol true If Yes, Agent(s) And Strength/Dosage false Any Other Genetic History false Live With Someone With TB Or Exposed To TB false Patient Or Partner Has History Of Genital Herpes false Rash Or Viral Illness Since Last Menstrual Perio d false History Of STD, Gonorrhea, Chlamydia, HPV, Syphi lis false Other Infection History false History of HIV false History of Hepatitis false Prior GBS-infected child false Hemoglobinopathy Or Carrier false Other Structural Defect false Recent Travel History Outside of Country false Delivery Information Delivery Date Delivery Type Labor Anesthesia Weeks Gestation Incision Type Labor Labor Length Hrs Delivered By Post Complications Tubal Sterilization [facility] Suzie Zara GILBERT Anemia, Anxiety in , Hypothyro idism, Large for gestation age fetus Discharge Information Feeding Method Contraceptive Method Maternal HG B and HCT Levels Ob Episode Information Episode Created Date Number of Fetuses Patient Bloodtype Patient rh Status Prepregnancy Weight lbs Domestic Partner Domestic Partner Phone Father Name Researcher Status 03/23/20 24 1 AB Positive 170 OPEN Fetus Data First Name Last Name Admitted to NICU Weight (g) Sex Living Outcome Pediatric Complications Fetus ID Race Codes Race Delivery Type [id number] Problems Problem Notes Problem Name Start Date End Date Resolution Snomed Code Not e Anxiety [id number] no current meds Large for gestation age fetus [id number] history Edward Calculation Initial Edward Date Initial Exam Date Initial Exam Provider Initial Ultrasound Date Last Menstrual Period Date Ultra Sound Weeks Gestation 10/17/2024 02/24/2024 Zara Silvaglr 02/24/2024 6 Eighteen To Twenty Week Edward Update Ultra Sound Date Fundal Height At Umbil Quickening Date Ultra Sound Latest Weeks Gestation Final Edward Confirmed By Final Edward Confirmed Date Final Edward Date Ultra Sound Latest Days Gestation 0 0 Pre-lidia Flowsheet Flowsheet Date 03/23/2024 Alexander Score Blood Edema Fundus Height Fundus Units Glucose Ketones Leukocytes Nitrite Labor Signs Protein Cervic Dilation Cervic Effacement Cervic Station Type Weight in lbs Pre/Post Dialysis Refused BP Diastolic BP Location Tested BP Systolic BP Type Fetus Heart Rate Present Fetus Movement Comments Flowsheet Date 03/23/2024 Alexander Score Blood Edema Fundus Height Fundus Units Glucose Ketones Leukocytes Nitrite Labor Signs Protein Cervic Dilation Cervic Effacement Cervic Station neg none none trace Type Weight in lbs Pre/Post Dialysis Refused 160.164916988731 BP Diastolic BP Location Tested BP Systolic BP Type 75 118 Fetus Heart Rate Present Fetus Movement A No Comments Patient is having some nause a and vomiting. will call out darlene, alfredo anxiety stopped sertraline does not want to restart at this time, education and precautions, start routine care, f/u 4 weeks Flowsheet Date 04/05/2024 Alexander Score Blood Edema Fundus Height Fundus Units Glucose Ketones Leukocytes Nitrite Labor Signs Protein Cervic Dilation Cervic Effacement Cervic Station Type Weight in lbs Pre/Post Dialysis Refused BP Diastolic BP Location Tested BP Systolic BP Type Fetus Heart Rate Present Fetus Movement Comments Flowsheet Date 04/20/2024 Alexander Score Blood Edema Fundus Height Fundus Units Glucose Ketones Leukocytes Nitrite Labor Signs Protein Cervic Dilation Cervic Effacement Cervic Station none Type Weight in lbs Pre/Post Dialysis Refused 160.795063929916 BP Diastolic BP Location Tested BP Systolic BP Type 78 116 Fetus Heart Rate Present A 157 Present Fetus Movement A Yes Comments doing well, us 04/05 wnl, buddy n anatomy at 20 weeks, education and precautions f/u 3weeks Flowsheet Date 05/13/2024 Alexander Score Blood Edema Fundus Height Fundus Units Glucose Ketones Leukocytes Nitrite Labor Signs Protein Cervic Dilation Cervic Effacement Cervic Station Type Weight in lbs Pre/Post Dialysis Refused 160.599165536271 BP Diastolic BP Location Tested BP Systolic BP Type 66 112 Fetus Heart Rate Present A 158 Fetus Movement A Yes Comments doing well +FM, precautions and education f/u 3 weeks anatomy scan Flowsheet Date 06/01/2024 Alexander Score Blood Edema Fundus Height Fundus Units Glucose Ketones Leukocytes Nitrite Labor Signs Protein Cervic Dilation Cervic Effacement Cervic Station Type Weight in lbs Pre/Post Dialysis Refused BP Diastolic BP Location Tested BP Systolic BP Type Fetus Heart Rate Present Fetus Movement Comments Flowsheet Date 06/01/2024 Alexander Score Blood Edema Fundus Height Fundus Units Glucose Ketones Leukocytes Nitrite Labor Signs Protein Cervic Dilation Cervic Effacement Cervic Station Type Weight in lbs Pre/Post Dialysis Refused 163.518521382489 BP Diastolic BP Location Tested BP Systolic BP Type 63 111 Fetus Heart Rate Present Fetus Movement A Yes Comments Patient states that is havin g some dizzyness and has felt like going to pass out. discussed increased hydration and protein, increase rest as needed, precautions and education. anatomy incomplete, f/u 4 weeks or sooner if needed Flowsheet Date 06/29/2024 Alexander Score Blood Edema Fundus Height Fundus Units Glucose Ketones Leukocytes Nitrite Labor Signs Protein Cervic Dilation Cervic Effacement Cervic Station Type Weight in lbs Pre/Post Dialysis Refused BP Diastolic BP Location Tested BP Systolic BP Type Fetus Heart Rate Present Fetus Movement Comments Flowsheet Date 06/29/2024 Alexander Score Blood Edema Fundus Height Fundus Units Glucose Ketones Leukocytes Nitrite Labor Signs Protein Cervic Dilation Cervic Effacement Cervic Station neg none Type Weight in lbs Pre/Post Dialysis Refused 167.622708136584 BP Diastolic BP Location Tested BP Systolic BP Type 65 L arm 101 sitting Fetus Heart Rate Present A Present Fetus Movement A Yes Comments Good movement. No cram ping or bleeding. Anatomy complete and normal today, EFW 74%. Normal VILLA. GCT and labs discussed for next visit. RTC 4 weeks. Flowsheet Date 07/27/2024 Alexander Score Blood Edema Fundus Height Fundus Units Glucose Ketones Leukocytes Nitrite Labor Signs Protein Cervic Dilation Cervic Effacement Cervic Station none 29 cm Type Weight in lbs Pre/Post Dialysis Refused 172.668829368639 BP Diastolic BP Location Tested BP Systolic BP Type 71 118 Fetus Heart Rate Present A 145 Fetus Movement A Yes Comments Patient is having BH contrac tions. reviewed precautions and education doing well, +FM GCT today f.u 2 weeks 4 week growth hx LGA Flowsheet Date 08/12/2024 Alexander Score Blood Edema Fundus Height Fundus Units Glucose Ketones Leukocytes Nitrite Labor Signs Protein Cervic Dilation Cervic Effacement Cervic Station none none Type Weight in lbs Pre/Post Dialysis Refused 173.431220806654 BP Diastolic BP Location Tested BP Systolic BP Type 74 110 Fetus Heart Rate Present Fetus Movement A Yes Comments Patient states that is havin g BH contractions. +FM us at next visit hx lga, precautions and education, has wisdom teeth coming in, rubbing on her gums, dentist to pull after delivers, pain that tylenol does not help. will rx norco, take sparingly discussed growth US and addiction possibilities. Flowsheet Date 08/26/2024 Alexander Score Blood Edema Fundus Height Fundus Units Glucose Ketones Leukocytes Nitrite Labor Signs Protein Cervic Dilation Cervic Effacement Cervic Station Type Weight in lbs Pre/Post Dialysis Refused BP Diastolic BP Location Tested BP Systolic BP Type Fetus Heart Rate Present Fetus Movement Comments Flowsheet Date 08/26/2024 Alexander Score Blood Edema Fundus Height Fundus Units Glucose Ketones Leukocytes Nitrite Labor Signs Protein Cervic Dilation Cervic Effacement Cervic Station neg none Type Weight in lbs Pre/Post Dialysis Refused 175.002616325209 BP Diastolic BP Location Tested BP Systolic BP Type 72 114 Fetus Heart Rate Present Fetus Movement A Yes Comments Patient is having contractio ns. efw 80%, small amount of pericardial fluid at apex per dr. edward rpt in one week, +FM, education and precautions f/u one week Flowsheet Date 09/02/2024 Alexander Score Blood Edema Fundus Height Fundus Units Glucose Ketones Leukocytes Nitrite Labor Signs Protein Cervic Dilation Cervic Effacement Cervic Station Type Weight in lbs Pre/Post Dialysis Refused BP Diastolic BP Location Tested BP Systolic BP Type Fetus Heart Rate Present Fetus Movement Comments Flowsheet Date 09/02/2024 Alexander Score Blood Edema Fundus Height Fundus Units Glucose Ketones Leukocytes Nitrite Labor Signs Protein Cervic Dilation Cervic Effacement Cervic Station neg none Type Weight in lbs Pre/Post Dialysis Refused 176.808202982338 BP Diastolic BP Location Tested BP Systolic BP Type 72 107 Fetus Heart Rate Present Fetus Movement A Yes Comments Patient states that is havin g contractions. pericardial fluid resolved +FM, precautions and education, call for preadmit, f/u 2 weeks with gbs Menstrual History Last Menstrual Date Menses Monthly On Bcp Conception Prior Menses Frequency Hcg Plus Date Menarche Onset Age Delivery Information Delivery Date Delivery Type Labor Anesthesia Weeks Gestation Incision Type Labor Labor Length Hrs Delivered By Post Complications Tubal Sterilization Discharge Date Comments Discharge Information Feeding Method Contraceptive Method Maternal HG B and HCT Levels
[2024-09-22 18:04] LABS: Add Urine Microscopic? YES; Appearance Urine Cloudy (Clear); Bacteria Urine 3+ /hpf; Bilirubin Urine Negative (Negative); Blood Urine 3+ (Negative); Color Urine Dark Yellow (Yellow); Glucose Urine UA Negative (Negative); Ketones Urine Trace mg/dL (Negative); Leukocyte Esterase Ur 2+ LEU/UL (Negative); Nitrate Urine Negative (Negative); Protein Urine 1+ mg/dL (Negative); RBC Urine 21-50 /hpf (0-2); Specific Grav Ur 1.027 (1.001-1.035); Squamous Epithelial Cell Urine Moderate /hpf (Few); WBC Urine 21-50 /hpf (0-3)
[2024-09-22] MEDS: LACTATED RINGERS 1,000 ML 125 ML IV CONT (19:21)
[2024-09-22] MEDS: AMPICILLIN 2 GM/NS 100 ML 2 GM/100 ML BAG IVPB (19:23)
[2024-09-22 19:26] LABS: Basophils Percent Auto 0.2 % (0.2-1.2); Eosinophils Absolute Auto 0.1 K/mm3 (0-0.3); Eosinophils Percent Auto 0.6 % (0-4.4); Hematocrit 36.8 % (37.0-47.0); Hemoglobin 11.9 g/dL (12.0-15.0); Immature Granulocyte Absolute 0.05 K/mm3 (0.00-0.031); Immature Granulocyte Percent A 0.4 % (0-0.5); Lymphocytes Absolute Auto 1.96 K/mm3 (0.9-3.2); Lymphocytes Percent Auto 14.7 % (18.3-44.2); Mean Corpuscular HGB Conc 32.3 g/dl (32-36); Mean Corpuscular Hemoglobin 26.4 pg (26-34); Mean Corpuscular Volume 81.6 fl (80-100); Mean Platelet Volume 11.6 fl (7.4-10.4); Monocytes Percent Auto 7.1 % (2.6-8.5); Neutrophils Absolute Auto 10.2 K/mm3 (1.3-6.7); Platelet Count Result 242 k/mm3 (150-375); Red Blood Count 4.51 M/mm3 (4.2-5.4); Red Cell Distribution Width 14.6 % (11.5-14.5); White Blood Count 13.3 K/mm3 (4.5-10.0)
--- NOTE | 2024-09-22 19:31 | LDADM ---
This patient, Katy Higuera, was admitted to Labor/Delivery/Recovery 104 on 09/22/24 at 18:44. Plans for labor, pain management and were discussed with patient. Patient/family oriented to hospital policies and general routines including ID bracelet, bed and alarms, visiting hours, pain management, procedures, bathroom and other care routines, personal items, smoking policy, room service/diet and guest tray routines, security routines, and visiting hours. Patient/Family are encouraged to report perceived risks to care and to ask questions if they do not understand what they are told or what they should do. See OBIX for further documentation.
[2024-09-22 20:16] LABS: HIV 1/2 Ab P24 Ag Result Negative (Negative)
[2024-09-22 20:18] LABS: Rubella IgG Antibody 13.4 IU/ML
[2024-09-22 20:22] LABS: Syphilis IgG/IgM Antibody Negative (Negative)
[2024-09-22 20:46] LABS: Hepatitis B Surface Antigen Negative (Negative)
--- NOTE | 2024-09-22 20:47 | WPDANESEPP ---
Anes - Eval Pre Procedure Procedure: Labor epidural Date/Time: 09/22/24 20:47 Surgeon: Ishmael Preop Diagnosis: Abdominal pain with contractions Pre Op Diagnosis: Charmaine Patient Data Age: 18 Gender: F Height: 1.57 m Weight: 78 kg Last Vital Signs Pulse 84 09/22/24 19:48 BP 146/82 H 09/22/24 19:48 O2 Del Method Room Air 09/22/24 19:30 Allergies Allergy/AdvReac Type Severity Reaction Status Date / Time Sulfa (Sulfonamide Allergy Unknown Rash Verified 09/22/24 19:46 Antibiotics) Home Medications ?Medication ?Instructions ?Recorded ?Confirmed ?Type vit no.95-ferrous 1 tablet PO DAILY 06/13/21 09/22/24 History fumarate 28 mg-folic acid 800 mcg tablet () levothyroxine 25 mcg tablet 25 mcg PO DAILY 02/05/23 09/22/24 History ferrous sulfate 325 mg (65 mg 325 mg PO DAILY 09/22/24 09/22/24 History iron) tablet (Feosol) Laboratory Tests 09/22/24 09/22/24 17:52 18:50 WBC 13.3 H K/mm3 (4.5-10.0) RBC 4.51 M/mm3 (4.2-5.4) Hgb 11.9 L g/dL (12.0-15.0) Hct 36.8 L % (37.0-47.0) MCV 81.6 fl (80-100) MCH 26.4 pg (26-34) MCHC 32.3 g/dl (32-36) RDW 14.6 H % (11.5-14.5) Plt Count 242 D k/mm3 (150-375) MPV 11.6 H fl (7.4-10.4) Immature Gran % (Auto) 0.4 % (0-0.5) Neut % (Auto) 77.0 H % (45.5-73.1) Lymph % (Auto) 14.7 L % (18.3-44.2) [place] % (Auto) 7.1 % (2.6-8.5) Eos % (Auto) 0.6 % (0-4.4) Baso % (Auto) 0.2 % (0.2-1.2) Lymph # (Auto) 1.96 K/mm3 (0.9-3.2) [place] # (Auto) 1.0 H K/mm3 (0.1-0.6) Eos # (Auto) 0.1 K/mm3 (0-0.3) Baso # (Auto) 0.0 K/mm3 (0.0-0.1) Abs Immat Gran (auto) 0.05 H K/mm3 (0.00-0.031) Absolute Neuts (auto) 10.2 H K/mm3 (1.3-6.7) Absolute Nucleated RBC 0.000 K/mm3 (0.0-0.012) Nucleated RBC % 0.0 % (0.0-0.2) Urine Color Dark yellow (Yellow) Urine Appearance Cloudy H (Clear) Urine pH 6.0 (5.0-9.0) Ur Specific [place] 1.027 (1.001-1.035) Urine Protein 1+ H mg/dL (Negative) Urine Glucose (UA) Negative mg/dL (Negative) Urine Ketones Trace H mg/dL (Negative) Ur Blood (Man) 3+ H (Negative) Urine Nitrate Negative (Negative) Urine Bilirubin Negative (Negative) Urine Urobilinogen 1.0 mg/dL (<2.0) Leukocyte Esterase Rfl 2+ H FLORA/UL (Negative) Urine RBC 21-50 H /hpf (0-2) Urine WBC 21-50 H /hpf (0-3) Ur Squamous Epith Cells Moderate /hpf (Few) Urine Bacteria 3+ H /hpf Urine Casts 3-5 Syphilis IgG/IgM Ab Negative (Negative) Hep Bs Antigen Negative (Negative) HIV 1&2 Ab/P24 Ag 4thGn Negative (Negative) Rubella IgG Antibody 13.4 IU/ML (10 - ) Blood Type AB Positive Antibody Screen Negative : gestational age HCG: positive Patient hx anesthesia problems: none Family hx anesthesia problems: none Results Review: All pre-operative results and documents have been reviewed as part of the pre-operative evaluation. [facility] Past Medical History Medical History Overweight (BMI 25.0-29.9) ADHD Hypothyroidism and not yet delivered Iron deficiency anemia during Family History Family History Mother Lupus Social History Social History Smoking status: Never smoker Second hand tobacco smoke exposure: No Substance use: never Do You Feel Safe in your Home?: No Lack of Transportation: No Lack of Food: Never True Current Housing: I Have Housing Concerned About Future Housing: No Difficulty Paying Gas/Electric Bills: No Difficulty Paying for Meds: No Currently Unemployed: No Education: High School Diploma/GED Difficulty w/ Childcare or Family Care: No Gender identity (if verbalized by the patient): Female Spiritual care concerns: No Exam Day of Procedure 09/22/24 20:47 Patient weight: overweight
[2024-09-22] MEDS: ONDANSETRON INJ 4 MG/2 ML VIAL IV PUSH (21:16)
--- NOTE | 2024-09-22 21:40 | WPDOBADMIT ---
Obstetrics - Admit Note Admission Note: record reviewed. No pertinent additions to the history and/or any subsequent changes in the physical findings that are not consistent with the expected course of the were found. Additions to the history and/or subsequent changes in the physical findings follow. Arrived in labor SVE 6-7/80/-2 AROM large amount of clear, odorless fluid, anticipate vaginal delivery
[2024-09-22] MEDS: OXYTOCIN 30 UNITS/NS 500 ML 30 UNITS/500 ML BAG IV CONT (22:05)
--- NOTE | 2024-09-22 23:21 | PM.OBPRVD ---
OB - Vaginal Delivery Note Procedure Delivery date: 09/22/24 Induction method: None Delivery augmentation: Rupture of Membranes and Pitocin Delivery monitor: External FHT and External Uterine Route of delivery: Episiotomy description: None Laceration Description: None Specimen: No Quantitative Blood Loss (ml): 70 Anesthesia type: Epidural Disposition: Floor Complications: No immediate complications Baby Date of : 09/22/24 Time of : 23:12 Gestational Age by Date: 36 Infant gender: Male presentation: vertex position: Right Occiput Anterior Placenta delivery description: Spontaneous Cord Vessel Description: 3 Vessels, Nuchal Cord (x1) and Delayed Cord Clamping score one minute: 8 score five minutes: 9
[2024-09-22] MEDS: OXYTOCIN 30 UNITS/NS 500 ML 30 UNITS/500 ML BAG 125 UNITS IV CONT (23:47)
[2024-09-23] VITALS (11 sets, daily range): BP systolic 110–135; BP diastolic 50–74; PULSE 64–88; RESP 16; TEMP 36.2–37.2; O2SAT 98–100
[2024-09-23] MEDS: BENZOCAINE 20% AER SPR (*SP) 56 GM CAN 1 SPRAY TOPICAL (00:34)
[2024-09-23] MEDS: WITCH HAZEL 40 PADS 1 PAD TOPICAL (00:34)
[2024-09-23] MEDS: IBUPROFEN 600 MG TABLET PO ×4 (02:26→21:30)
[2024-09-23] MEDS: ACETAMINOPHEN 325 MG TABLET 650 MG PO ×2 (02:26→19:42)
[2024-09-23 04:35] LABS: Hematocrit 28.3 % (37.0-47.0); Hemoglobin 9.1 g/dL (12.0-15.0)
--- NOTE | 2024-09-23 05:56 | PC.NURSE ---
0150- Mother and admitted to room #288, this RN oriented pt and family to room, unit policies.
--- NOTE | 2024-09-23 07:41 | P.PNOB_ITS ---
OB - PN: Subj Subjective Date/time seen: 09/23/24 07:41 Interval history: pp day 1 doing well baby LGA blood sugasr OB - PN: Obj Data Labs 09/23/24 04:23 Labs: Laboratory Results - last 24 hr 09/22/24 09/22/24 09/23/24 17:52 18:50 04:23 WBC 13.3 H RBC 4.51 Hgb 11.9 L 9.1 L Hct 36.8 L 28.3 L MCV 81.6 MCH 26.4 MCHC 32.3 RDW 14.6 H Plt Count 242 D MPV 11.6 H Immature Gran % (Auto) 0.4 Neut % (Auto) 77.0 H Lymph % (Auto) 14.7 L [place] % (Auto) 7.1 Eos % (Auto) 0.6 Baso % (Auto) 0.2 Lymph # (Auto) 1.96 [place] # (Auto) 1.0 H Eos # (Auto) 0.1 Baso # (Auto) 0.0 Abs Immat Gran (auto) 0.05 H Absolute Neuts (auto) 10.2 H Absolute Nucleated RBC 0.000 Nucleated RBC % 0.0 Urine Color Dark yellow Urine Appearance Cloudy H Urine pH 6.0 Ur Specific [place] 1.027 Urine Protein 1+ H Urine Glucose (UA) Negative Urine Ketones Trace H Ur Blood (Man) 3+ H Urine Nitrate Negative Urine Bilirubin Negative Urine Urobilinogen 1.0 Leukocyte Esterase Rfl 2+ H Urine RBC 21-50 H Urine WBC 21-50 H Ur Squamous Epith Cells Moderate Urine Bacteria 3+ H Urine Casts 3-5 Syphilis IgG/IgM Ab Negative Hep Bs Antigen Negative HIV 1&2 Ab/P24 Ag 4thGn Negative Rubella IgG Antibody 13.4 Blood Type AB Positive AB Positive Antibody Screen Negative TNP Screen Not Reportable Baby's Blood Type Not Reportable Baby's BEVERLEY Not Reportable Doses of RhIg Required 0 OB - PN A/P Plan day: 1 Plan: routine care Time Spent With Patient Time: Total time spent is greater than 50% in coordination of care (as documented) at patient's floor/unit and/or counseling patient: Review of Systems 2 Review of Systems: All systems reviewed & are unremarkable except as noted in HPI and below Exam 2 Const: General: cooperative Resp: Effort & Inspection: normal respiratory effort Cardio: Rate: regular rate
[2024-09-23] MEDS: DOCUSATE SODIUM 100 MG CAPSULE PO ×2 (08:32→15:48)
[2024-09-23] MEDS: POLYSACCHARIDE IRON COMPLEX 150 MG CAPSULE PO ×2 (08:32→15:48)
[2024-09-23] MEDS: MULTIVIT/MIN/PREN/FOL AC/IRON TABLET 1 TAB PO (08:32)
--- NOTE | 2024-09-23 17:26 | WPDANLDPN2 ---
Anes-Prog Note L&D Date/Time: 09/23/24 17:26 Comfortable throughout: labor and delivery Neuraxial method: epidural Epidural/Spinal procedure site: clean & non-tender Neuro status: Neuro function grossly intact. Cardiovascular status: normal Respiratory status: normal Airway patency: baseline Mental status: baseline Post-Op hydration status: normal Vital Signs: Last Vital Signs Temp 97.2 F L 09/23/24 12:33 Pulse 73 09/23/24 12:33 Resp 16 09/23/24 12:33 BP 113/61 09/23/24 12:33 Pulse Ox 98 09/23/24 12:33 O2 Del Method Room Air 09/22/24 19:30 Pain score (VAS): 0/10 I/O: Intake & Output 09/23/24 09/23/24 09/23/24 07:59 15:59 23:59 Intake Total 500 960 Output Total 500 Balance 0 960 Post-procedural complaints: none Patient feedback: Patient satisfied with anesthetic care.
[2024-09-24] MEDS: IBUPROFEN 600 MG TABLET PO ×2 (03:30→12:00)
[2024-09-24 08:00] VITALS: BP 109/65; PULSE 68; RESP 16; TEMP 36.6; O2SAT 100
[2024-09-24] MEDS: POLYSACCHARIDE IRON COMPLEX 150 MG CAPSULE PO (08:41)
[2024-09-24] MEDS: MULTIVIT/MIN/PREN/FOL AC/IRON TABLET 1 TAB PO (08:41)
[2024-09-24] MEDS: DOCUSATE SODIUM 100 MG CAPSULE PO (08:41)
--- NOTE | 2024-09-24 14:08 | P.DS_ITS ---
DS: Admitting Diagnosis Discharge Date 09/24/2024 Admitting Diagnosis Term DS: Discharge Diagnosis Discharge Diagnosis (1) , delivered: Code(s): O80 - Encounter for full-term uncomplicated delivery Status: Acute OB - DS: Summary OB Procedures : None OB Procedures Intrapartum: Spontaneous Vag Delivery OB Procedures: : None Peripartum Data Laceration Description: None Episiotomy description: None Time Spent with Patient Time attestation: Total time spent providing and/or coordinating discharge services: Discharge Plan Discharge Discharging Clinician: Kai Quiñones Patient Disposition: Home, Self-Care Activity: pelvic rest Diet: regular Discharge Instructions: Education: Mom and Baby Guide Given to: Mother Follow-Up: Call your delivering provider's office for an appointment to be seen in: 4 Weeks [facility]. Appointment Date/Time: September 26, 2024 at 8:00 am What to expect at your follow-up visit: Blood Pressure Check Physical Assessment Call [phone] if you are unable to keep your appointment time. BREAST CARE: * Wear a snug supportive bra. * For engorgement discomfort: Breast Feeding: * Apply warm moist washcloths * Express milk as needed to relieve engorgement * Wear loose clothing Bottle Feeding: * May apply ice packs * For sore nipples: * Identify correct latch-on * Apply warm moist washcloths before and after nursing * Air dry nipples after nursing * May apply Lansinoh cream to nipples ABDOMINAL INCISION: (if applicable) * Allow incision to air dry * Do NOT use lotions for powders on your incision * When showering, allow soap and water to run over the incision, but do not wash incision EPISIOTOMY/PERINEAL CARE: * Until bleeding stops, use your jennyfer bottle after urinating * Change your pad frequently throughout the day * You may take sitz baths several times a day (fill your bathtub with warm water and soak for 20 minutes.) Do NOT bathe in the water * No tub baths until seen by your physician - You may shower ACTIVITY: * Rest as much as possible. * Do not exercise or lift anything heavier than your baby (such as laundry or other children.) * Avoid stairs or driving as much as possible. * Do not put anything into the vagina. No douching, tampons, or sexual activity until seen by physician. NOTIFY PHYSICIAN IF YOU HAVE ANY QUESTIONS OR IF ANY OF THE FOLLOWING SYMPTOMS OCCUR: * If your episiotomy or incision becomes red, swollen, or more painful than what you have experienced in the hospital. * If your vaginal bleeding becomes foul smelling. * If your vaginal bleeding becomes more heavy than a period or if your bleeding changes from pink to bright red. However, you may pass an occasional walnut- sized clot once or twice for the first week . * If you experience a sharp, shooting pain in you calves. * If you discover a hard, reddened area on your breast or if you experience flu- like symptoms. DIET: * Eat regular, well-balanced meals. * Drink plenty of fluids daily. If , drink to thirst. Patient Instructions: Antibiotic Form, Caring for Your Baby (DC), Vaginal Delivery (DC) Patient Language: Afghan Stand Alone Forms: General Discharge Information Follow-up/Referrals: Kai Quiñones MD [Physician] - Discharge Medications: No Action levothyroxine 25 mcg tablet 25 mcg PO DAILY PNV [id number] fumarate-FA [] 28 mg iron- 800 mcg Tablet 1 tablet PO DAILY ferrous sulfate [Feosol] 325 mg (65 mg iron) tablet 325 mg PO DAILY Date of admission: 09/22/24 18:44 Primary Care Provider: UNKNOWN,DOCTOR Admitting Provider: Kai Quiñones Attending physician on admission: Kai Quiñones Condition: Stable
--- NOTE | 2024-09-24 14:08 | P.PNOB_ITS ---
OB - PN: Subj Subjective Date/time seen: 09/24/24 14:08 Interval history: pp day 1 doing well baby LGA blood sugasr Patient comments: no complaints, pain well controlled, incisional pain, tolerating diet and flatus present OB - PN: Obj Data Labs 09/23/24 04:23 OB - PN A/P Plan day: 1 Plan: routine care Comments: No problems, routine care Time Spent With Patient Time: Total time spent is greater than 50% in coordination of care (as documented) at patient's floor/unit and/or counseling patient: Exam 2 Const: General: comfortable, no acute distress and alert Resp: Effort & Inspection: normal respiratory effort Auscultation: no crackles, no rales and no rhonchi Cardio: Rate: regular rate Heart sounds: no click, no murmurs and no rubs GI: Inspection: non-distended GI Palp: No Tenderness to palpation present (GI) Auscultation: normal bowel sounds Other: Incision - CDI Extrem: General: normal to inspection, no pedal edema and no calf tenderness
== END 2024-09-24 14:44 | disposition home or self-care (01) | DRG 560 ==
LOC: ANHOBPP 18:50 → ANHLDR 18:51 → ANHOB2 09-23 01:57
PROVIDERS: Admitting Provider Obstetrics & Gynecology; Referring Provider Advanced Practice Midwife; Visit Provider Obstetrics & Gynecology
DX: O60.14X0 Preterm labor third trimester with preterm delivery third trimester, not applicable or unspecified (principal); O36.63X0 Maternal care for excessive fetal growth, third trimester, not applicable or unspecified; O69.81X0 Labor and delivery complicated by cord around neck, without compression, not applicable or unspecified; Z37.0 Single live birth; Z3A.36 36 weeks gestation of pregnancy
CPT/HCPCS: 36415; 81001; 85014; 85018; 85025; 85461; 86593; 86703; 86762; 86850; 86900; 86901; 87340; A9270; G0378; G0379; G0432; J0290; J2405; J2590; J2795; J7120

== ENCOUNTER 2025-04-10 22:07 | Emergency (ER) | payer OTHER, SELFPAY ==
[2025-04-10 22:41] LABS: Hematocrit 35.4 % (37.0-47.0); Hemoglobin 11.1 g/dL (12.0-15.0); Immature Granulocyte Percent A 0.3 % (0-0.5); Lymphocytes Absolute Auto 2.18 K/mm3 (0.9-3.2); Mean Corpuscular HGB Conc 31.4 g/dl (32-36); Mean Corpuscular Hemoglobin 25.3 pg (26-34); Mean Corpuscular Volume 80.8 fl (80-100); Nucleated Red Blood Cells Absolute Auto 0.000 K/mm3 (0.0-0.012); Nucleated Red Blood Cells Perc 0.0 % (0.0-0.2); Platelet Count Result 325 k/mm3 (150-375); Red Blood Count 4.38 M/mm3 (4.2-5.4); White Blood Count 9.4 K/mm3 (4.5-10.0)
[2025-04-10 22:55] LABS: Alanine Aminotransferase 23 U/L (6-35); Albumin Level 4.5 g/dL (3.5-5.1); Alkaline Phosphatase 80 U/L (38-126); Anion Gap 9 mmol/L (4-12); Aspartate Amino Transferase 27 U/L (14-36); Bilirubin,Total 0.4 mg/dL (0.2-1.3); Blood Urea Nitrogen 12 mg/dL (7-17); Calcium 8.9 mg/dL (8.4-10.2); Carbon Dioxide 25 mmol/L (22-30); Chloride 103 mmol/L (98-107); Estimated CRCL calculation 100 ml/min; Estimated Glomerular Filt Rate > 60; Glucose 92 mg/dL (65-110); INR 1.0; Partial Thromboplastin Time 30.2 Seconds (22.3-36.8); Potassium 4.1 mmol/L (3.4-5.0); Prothrombin Time 13.4 Seconds (11.1-14.7); Sodium 137 mmol/L (137-145); Total Protein 8.5 g/dL (6.3-8.2)
[2025-04-10 23:12] LABS: Beta HCG Quantitative < 2.39 mIU/ML
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
--- OUTSIDE RECORDS SUMMARY | 2025-04-10 23:29 | XMS_ITS | Data Portability ---
Author Organization [facility] [place] Address [address] [place] [address] [place] [address] Assessment Encounter Date Assessment Date Assessment LastModified by Organization Details LastModified Time 09/02/2024 09/02/2024 Patient is _33__weeks . Discussed plan. Not available 09/02/2024 16:10:44 Plan of Treatment Reminders Order Date Submit Date Provider Last Modified By Organization Details Last Modified Time Details Appointments None recorded. Lab test, urine 2024 025 [email or web address] 1 [facility], [address], [place], [address], 08:44:34 Referral None recorded. Procedures None recorded. Surgeries None recorded. Imaging US, obstetric, limited 2024 025 [email or web address] [facility], [address], [place], [address], 5 18:02:25 Medication Orders Depo-Compliance Mgr a 150 mg/mL intramuscul ar suspension 2024 025 [email or web address] 1 Not available 08:41:36 Patient TargetsNo targets recorded. Patient InstructionsNo instructions recorded. Reason for Referral None Reported. Results Created Date Observation Date Name Description Value Unit Range Abnormal Flag Note LastModifiedBy Organization Detail LastModifiedTime 11/13/19 25 11/12/2024 pregn danyelle test, urine HCG negati ve Not Available [place] [address], [place], [address], 11/12/2024 08:36:48 08/26/19 25 08/26/2024 US, obste tric, follo w-up No observ ation record ed. [facility] [address], [place], [address], 08/26/2024 17:10:18 08/26/19 25 08/26/2024 US, obste tric, follo w-up No observ ation record ed. [email or web address] [address], [place], [address], 08/27/2024 23:08:28 09/02/19 25 09/02/2024 US, obste tric, limit ed No observ ation record ed. [email or web address] [address], [place], [address], 09/05/2024 23:23:05 09/02/19 25 09/02/2024 US, obste tric, limit ed No observ ation record ed. [facility] [address], [place], [address], 09/02/2024 17:56:21 Result Notes None recorded. Problems Name Problem SNOMED Code Status Onset Date Resolution Date Notes Provider Name and Address Organization Details Recorded Time Asthma 710381114 Completed Marlys shepherd, [facility] 2 10:34:27 Asthma 998024654 Active Marlys colunga null, [facility] 2 10:34:27 Anxiety in pregnanc y 0565269101 9109 Completed declines meds [facility], [facility] 3 17:04:31 ultrasou nd scan abnormal 7911861611 9109 Completed EIF [facility], [facility] 3 17:04:31 Large for gestatio n age fetus Completed 96% 32w, 94%/97% AC at 36w) [facility], [facility] 3 17:04:31 Anemia 729018626 Completed Iv iron order sent 01/19 and labs complete d [facility], [facility] 3 17:04:31 Anxiety 80482520 Completed no current meds Zara Larsen CNM [address], [place], [address], [facility] 4 16:44:54 Large for gestatio n age fetus Completed history Zara Larsen CNM [address], [place], [address], [facility] 4 16:45:59 Pregnanc y 01923116 Completed 202008/05/2021 Lolita shepherd, [facility] 5 19:54:15 Teenage pregnanc y 975302829 Completed 2020 Maryls colunga [facility], [facility] 2 10:34:27 Iron deficien cy anemia of pregnanc y 539730317 Completed 2020 IV iron - 05/24, r/s 06/03 inf to 06/04or 4 @ [facility] Marlys colunga [facility], [facility] 2 10:34:27 Pregnanc y 46392535 Completed 202203/30/2023 Lolita shepehrd, [facility] 5 19:54:15 Hypothyr oidism 95430681 Completed 2022 levo 25mcg [facility] 3 17:04:31 Mixed anxiety and depressi ve disorder 235907532 Active 2023 Lolita Costello [facility] 4 09:53:40 Pregnanc y 64121605 Completed 202310/04/2024 Lolita Costello [facility] 5 19:54:15 Problem Notes None recorded. Medical Equipment None Reported. Allergies Allergen ID Allergen Name Allergen Category Reaction Reaction Severity Criticality Documentation Date Start Date Code Code System Note Provider Name and Address Organization Details Recorded Time 05475 Substance with sulfonami de structure and antibacte rial mechanism of action (substanc e) medicatio n Not available Not available Not available 05/07/2021 00475 8003 SNOMED Amalia Ember [facility] 1 16:39:08 Medications Name Sig Start Date Stop Date Status Note LastModified by Organization Details LastModified Time hydrocodo ne 5 mg-acetam inophen 325 mg tablet TAKE 1 TABLET BY MOUTH EVERY 6 HOURS NEEDED FOR PAIN 09/02 completed Not Available Not Available Not Available metronida zole 500 mg tablet TAKE 1 TABLET BY MOUTH 2 TIMES A DAY. AVOID ALCOHOL DURING AND 3 DAYS AFTER TREATMEN T. active Not Available Not Available No t Available levothyro xine 25 mcg tablet TAKE 1 TABLET BY MOUTH EVERY DAY 09/28 completed Not Available Not Available Not Available ofloxacin 0.3 % ear drops PLACE 5 DROPS IN AFFECTED EAR EVERY DAY FOR 7 DAYS 02/16 completed Not Available Not Available Not Available amoxicill in 875 mg tablet TAKE 1 TABLET BY MOUTH TWICE A DAY FOR 7 DAYS 02/16 completed Not Available Not Available Not Available triamcino lone acetonide 0.025 % topical cream APPLY A THIN LAYER TO AFFECTED AREA(S) TWICE DAILY 03/09 completed Not Available Not Available Not Available Depo-Prov era 150 mg/mL intramusc ular suspensio n Inject 1 mL every 3 months by intramus cular route. 2024 active Patient UPT was negative and was given Depo injectio n into right hip lot [id number] A Exp 06/2026 and patient will next be due January 26-January Not Available Not Available Not Available doxycycli ne monohydra te 100 mg capsule TAKE 1 CAPSULE BY MOUTH TWICE A DAY FOR 7 DAYS-NO SEXUAL INTERCOU RSE FOR 7DAYS & MEDICATI ON COMPLETE 02/16 completed Not Available Not Available Not Available fluoxetin e 10 mg capsule TAKE 1 CAPSULE BY MOUTH EVERY DAY 11/20 completed Not Available Not Available Not Available albuterol sulfate HFA 90 mcg/actua tion aerosol inhaler 09/28 completed Not Available Not Available Not Available ondansetr on 4 mg disintegr ating tablet 09/28 completed Not Available Not Available Not Available sertralin e 50 mg tablet TAKE 1 TABLET BY MOUTH EVERY DAY DIRECTED active Not Available Not Available No t Available doxycycli ne hyclate 100 mg tablet TAKE 1 TABLET BY MOUTH TWICE A DAY 03/25 completed Not Available Not Available Not Available buspirone 15 mg tablet Take 1 tablet twice a day by oral route. 09/15 completed Not Available Not Available Not Available Vitamin 27 mg iron-0.8 mg tablet TAKE 1 TABLET BY MOUTH EVERY DAY 09/28 completed Not Available Not Available Not Available Depo-Prov era 150 mg/mL intramusc ular syringe Inject 1 mL every 3 months by intramus cular route. 2024 active Not Available Not Available Not Avai lable azithromy megan 500 mg tablet TAKE 2 TABLETS BY MOUTH ONCE FOR DOSE 02/16 completed Not Available Not Available Not Available escitalop susana 10 mg tablet TAKE 1 TABLET BY MOUTH EVERY DAY 08/05 completed Not Available Not Available Not Available nitrofura ntoin monohydra te/macroc rystals 100 mg capsule 09/28 completed Not Available Not Available Not Available Flovent HFA 110 mcg/actua tion aerosol inhaler 09/28 completed Not Available Not Available Not Available 09/28 completed Not Available Not Available Not Available Triveen-D uo DHA 29 mg-1 mg-400 mg oral pack Take 1 pack by oral route. 01/04 completed Not Available Not Available Not Available 28 mg iron-800 mcg tablet 01/04 completed Not Available Not Available Not Available Blisovi 24 Fe 1 mg-20 mcg (24)/75 mg (4) tablet TAKE 1 TABLET BY MOUTH EVERY DAY 03/25 completed Not Available Not Available Not Available Vitals Date Recorded Body weight Systolic And Diastolic Provider Name and Address Organization Details Last Updated DateTime 09/02/2024 60243.50301 g 107/72 mm[Hg] Lolita Costello [facility] 09/02/2024 15:40:18 Date Recorded Body height Body mass index (BMI) Body mass index (BMI) [Percentile] Per age and sex Body weight Systolic And Diastolic Provider Name and Address Organization Details Last Updated DateTime 11/11/2024 149.86 cm 32.7 kg/m2 95.53 % 60016.9 6 g 115/72 mm[Hg] Lolita Costello [facility] 13:57:44 Social History Question Answer Notes LastModified by Organizat ion Details LastModified Time Tobacco Smoking Status Never Smoker Lolita Costello [facility] 03/09/2023 16:02:28 Do You Have An Advance Directive? No [email or web address] Information n ot available 08/05/2022 If You Are , What Was Your Level Of Alcohol Consumption Prior To ? Occasional [email or web address] Information not available 03/23/2024 Are You Blind Or Do You Have Difficulty Seeing? No [email or web address] Information n ot available 08/05/2022 What Is Your Level Of Caffeine Consumption? Occasional [email or web address] Information not available 08/05/2022 How Much Tobacco Do You Chew? None [email or web address] Information not available 08/05/2022 In The 14 Days Before Symptom Onset, Have You Had Close Contact With A Laboratory-confirm ed COVID-19 While That Case Was Ill? No [email or web address] Information n ot available 08/05/2022 In The 14 Days Before Symptom Onset, Have You Had Close Contact With A Person Who Is Under Investigation For COVID-19 While That Person Was Ill? No [email or web address] Information not available 08/05/2022 Have You Been To An Area Known To Be High Risk For COVID-19? No [email or web address] Information not available 08/05/2022 Are You Deaf Or Do You Have Serious Difficulty Hearing? No Information not available 08/05/2022 What Type Of Diet Are You Following? REGULAR [email or web address] Information n ot available 08/05/2022 What Is The Highest Grade Or Level Of School You Have Completed Or The Highest Degree You Have Received? LC56507-5 [email or web address] Information not available 08/05/2022 Are There Any Guns Present In Your Home? No [email or web address] Information not available 08/05/2022 Do You Use Protection During Sex? No [email or web address] Information not available 08/05/2022 Do You Use Your Seat Belt Or Car Seat Routinely? Yes [email or web address] Information not available 08/05/2022 Do You Have Smoke And Carbon Monoxide Detectors In Your Home? Yes [email or web address] Information not available 08/05/2022 How Much Tobacco Do You Smoke? No [email or web address] Information not available 08/05/2022 Do You Use Sunscreen Routinely? No [email or web address] Information not available 08/05/2022 Have You Used IV Drugs? No [email or web address] Information not available 08/05/2022 Do You Have Difficulty Walking Or Climbing Stairs? No Information not available 03/09/2023 Sex: Unknown Functional Status Question Answer Note LastModified by Organizat ion Details LastModified Time Do you use any illicit or recreational drugs? No [email or web address] Information not available 08/05/2022 What is your level of alcohol consumption? None Information not available 08/05/2022 Are you able to walk independently without assistance or assistive devices? YESWOREST [email or web address] Information not available 08/05/2022 Are you able to care for yourself independently? 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 No [email or web address] Information not available 03/09/2023 What is your exercise level? [email or web address] Information not available 09/29/2023 Mental Status Question Answer Note LastModified by Organization D etails LastModified Time Do you feel stressed (tense, restless, nervous, or anxious, or unable to sleep at night)? MP0115-3 [email or web address] Information not available 08/05/2022 Family History Relationship Description Onset Age of this Age Resolved Age Notes LastModified by Organization Details LastModified Time Father Asthma [email or web address] Not available 01/07/2023 09:45:47 Maternal Grandmother Diabetes mellitus [email or web address] Not available 01/07 09:45:47 Maternal Grandmother Hypertensive disorder [email or web address] Not available 01/07 09:45:47 Maternal Grandfather Malignant neoplasm of lung [email or web address] Not available 01/07 09:45:47 Maternal Uncle Seizure [email or web address] Not available 03/09/20 15:39:37 Medical History Condition Response Allergies (Food, seasonal, environmental ) Y Other Y Drug/Latex Allergies/Reactions Y Blood Transfusion N Breast Cancer N Dermatologic Disorders N Lung Disease N Defects or Inherited Disease N Breast Problem N Gestational Diabetes N Hematologic disorders N Anesthesia Complications N History of STI N Deep Vein Thrombosis N Polycystic ovary syndrome N Anxiety Disorder Y Autoimmune disease N Arthritis N Polyps N Infertility N Acid Reflux (GERD) N History of abnormal pap N Cancer N Varicosities N Stroke N Neurologic/Epilepsy N Endometriosis N High Cholesterol N Fibromyalgia N Headaches N Kidney Disease N Heart Problems N Thyroid Problems N Kidney or Bladder Problems N GI Problems N Eating Disorder [...] N Thrombophilias N Gynecological History Statement/Question Response Abnormal Pap N Date of Last Mammogram On BCP's at Conception? N N STIs/STDs N Was last menstrual period normal Y HPV Vaccine Y Duration of Flow (days) 5 Current Control Method Depo-Compliance Mgr a Age at First Child 15 Are cycles usually normal N Date of Last Colonoscopy Frequency of Cycle (Q days) 28 Sexually Active? Y Menses Monthly N Date of DEXA bone scan Age of first menstrual cycle 11 Date of Last Pap Smear Sexual Problems? N LMP Unknown Desired Control Method Unknown N Obstetrics History GPAL:G 3 P 2 1 0 3 Type Value Full Term 2 Premature 1 Living 3 Total 3 Past Encounters Encounter ID Performer Location Encounter Start Date Encounter Closed Date Diagnosis/Indication Diagnosis SNOMED-CT Code Diagnosis ICD10 Code Diagnosis IMO Codes Diagnosis Note [id number] Kate Mckeon CNM [facility] [place] [address],[place] [address] 11/20/2020 12:17:29 11/20/2020 14:38:54 test positive 307255566 Z32.01 Risk factors addressed: Tobacco Cessation, Safe [...] annual well woman examinatio n and address [facility] . [id number] Kai Quiñones MD [place] [address],[place] [address] 11/20/2020 12:25:39 11/20/2020 14:38:43 Uncertain viability of 727419430 O36.80X0 Z3A.01 [id number] Ирина Robbins MD [place] [address],[place] [address] 01/04/2021 14:47:47 01/05/2021 21:54:47 Routine care 968093901 Z34.91 Asthma in 7230 899320 3192 J45.909 [id number] Ирина Robbins MD [place] [address],[place] [address] 01/04/2021 14:48:24 01/04/2021 15:48:59 screening 653234837 Z36.82 [id number] MD [place] [address],[place] [address] 01/30/2021 15:58:31 01/30/2021 17:25:40 Routine care 824447480 Z34.91 Teenage 578618 001 O09.619 [id number] MD Mary[place] [address],[place] [address] 02/26/2021 16:29:06 02/27/2021 10:26:33 screening for malformation 500326131 Z36.3 [id number] MD Maryana [place] [address],[place] [address] 02/26/2021 16:29:31 02/27/2021 10:55:22 Teenage 194591223 O09.619 Routine an tenatal care 415597108 Z34.91 [id number] MD [place] [address],[place] [address] 04/09/2021 16:28:16 04/10/2021 16:01:04 Teenage 292464041 O09.619 Asthma 412038736 J45.90 9 [id number] MD [place] [address],[place] [address] 04/26/2021 14:32:13 04/26/2021 15:37:34 Routine care 022339868 Z34.91 Vaccination not done 918 9434963 9108 Z28.9 Asthma in 7230 280382 4667 J45.909 [id number] Ирина Robbins MD [place] [address] [place] [address] 05/02/2021 16:26:24 05/02/2021 17:09:05 [id number] [facility] [address] [place] [address] 05/14/2021 16:15:22 05/14/2021 17:52:25 Routine care 985172316 Z34.93 [id number] Ирина Robbins MD [place] [address],[place] [address] 05/21/2021 16:34:16 05/21/2021 17:21:42 Iron deficiency anemia of 337887017 O99.019 Teenage 835793 001 O09.619 [id number] Ирина Robbins MD [place] [address],[place] [address] 06/04/2021 18:21:56 06/05/2021 11:05:31 Teenage 569773554 O09.619 Iron defic iency anemia of 775744474 O99.019 [id number] Kate Mckeon CNM [place] [address],[place] [address] 06/13/2021 11:59:00 06/13/2021 13:47:09 Routine care 242830212 Z34.93 [id number] [facility] [address],[place] [address] 06/20/2021 15:27:35 06/21/2021 22:05:13 screening 606296908 Z36.9 [id number] [facility] [address],[place] [address] 06/27/2021 15:45:49 06/27/2021 16:13:08 Routine care 432877388 Z34.93 [id number] Kate Mckeon CNM [place] [address],[place] [address] 08/05/2021 15:48:17 08/05/2021 16:10:40 state 25127414 Z39.2 Continue to watch for signs/symp toms [...] plan if desired Contracept ion care management 845242368 Z30.9 Discussed all control options in great [...] read and signed. Pt verbalized understand ing. [id number] Ирина Robbins MD [place] [address],[place] [address] 03/25/2022 11:51:36 03/25/2022 14:05:56 depression 50575459 F53.0 Contracept ion care management 850410595 Z30.9 [id number] Kai Quiñones MD [place] [address],[place] [address] 08/05/2022 15:44:23 08/05/2022 17:23:49 Uncertain viability of 219440535 O36.80X0 Z3A.01 [id number] [facility] [address],[place] [address] 08/05/2022 15:44:45 08/06/2022 17:21:58 Amenorrhea 81076615 N91.2 Venereal d isease screening 281026834 Z11.3 Anxiety 01639058 F41.9 Pt has a history of anxiety. [...] 2 weeks for med check. test positive 698396000 Z32.01 Risk factors addressed: Tobacco Cessation, Safe [...] annual well woman examinatio n and address [facility] . [id number] [facility] [address],[place] [address] 08/19/2022 16:48:46 08/19/2022 17:29:18 Anxiety 30673314 F41.9 Discussed treatment with zoloft including risks and benefits. Pt would like to start. Will return in 2 weeks for med check or sooner if any worsening of symptoms. [id number] Kate Mckeon CNM [place] [address],[place] [address] 09/01/2022 16:46:09 09/03/2022 11:43:16 Routine care 362916960 Z34.93 Anxiety 92670908 F41.9 Discussed options with patient. She does want to try zoloft again but with food. If she is unable to tolerate, I have asked her to call us. If she is doing well with medication we can follow up in 2 weeks. [id number] MD [facility] [place] [address],[place] [address] 09/15/2022 16:09:01 09/16/2022 16:36:29 Routine care 937224035 Z34.91 [id number] Ирина Robbins MD [place] [address],[place] [address] 09/15/2022 16:12:10 09/15/2022 16:34:49 screening 021901643 Z36.82 [id number] MD [place] [address],[place] [address] 10/13/2022 16:00:36 10/14/2022 10:05:58 Routine care 015162352 Z34.91 [id number] Ирина Robbins MD [place] [address],[place] [address] 11/10/2022 15:49:58 11/10/2022 17:05:47 screening for malformation 086642880 Z36.3 [id number] Ирина Robbins MD [place] [address],[place] [address] 11/10/2022 15:50:17 11/10/2022 17:52:24 Routine care 247418238 Z34.91 ultr asound scan abnormal 1818599866 9109 O28.3 Large for gestation age fetus 635114954 O36.62X1 [id number] Ирина Robbins MD [place] [address],[place] [address] 12/09/2022 16:29:32 12/09/2022 17:31:28 ultrasound scan abnormal 5066085282 9109 O28.3 O36.61X0 Z3A.24 [id number] Иирна Robbins MD [place] [address],[place] [address] 12/09/2022 16:29:46 12/10/2022 15:31:15 Large for gestation age fetus 085099688 O36.62X1 Routine an tenatal care 147240719 Z34.91 [id number] Kai Quiñones MD [place] [address],[place] [address] 01/07/2023 09:02:07 01/07/2023 10:04:25 Large for gestation age fetus 710350675 O36.63X0 Z3A.28 [id number] [facility] [address],[place] [address] 01/07/2023 09:02:26 01/07/2023 10:06:32 Routine care 338381322 Z34.93 [id number] MD [place] [address],[place] [address] 01/19/2023 16:36:00 01/20/2023 10:25:44 Anemia of 33839010 O99.019 [facility] 32765003 E02 [id number] MD [place] [address],[place] [address] 02/02/2023 16:28:17 02/02/2023 17:28:59 Large for gestation age fetus 592256506 O36.63X0 O99.283 Z3A.32 [id number] MD [place] [address],[place] [address] 02/02/2023 16:28:31 02/03/2023 11:02:01 Large for gestation age fetus 225682684 O36.63X0 O99.283 Z3A.32 16086266 Z33.1 [id number] MD [place] [address],[place] [address] 02/16/2023 16:23:24 02/16/2023 16:57:30 Routine care 542583484 Z34.91 Large for gestation age fetus 904845774 O36.63X0 O99.283 Z3A.32 [id number] MD [place] [address],[place] [address] 03/02/2023 15:25:03 03/02/2023 16:33:40 Large for gestation age fetus 810788799 O36.63X0 O99.283 Z3A.36 [id number] MD [place] [address],[place] [address] 03/02/2023 15:25:38 03/03/2023 10:36:09 Routine care 337158341 Z34.91 [id number] MD [place] [address],[place] [address] 03/09/2023 15:39:29 03/11/2023 14:27:55 Routine care 431225099 Z34.91 [id number] DEION Marquez [place] [address],[place] [address] 09/29/2023 15:55:50 09/29/2023 16:37:38 Mixed anxiety and depressive disorder 978482744 F41.8 Discussed depression /anxiety symptoms today and management options reviewedsh e would like to start pharmacolo gic management : rx sent for sertraline , r/b/a reviewedco unseling encouraged - handout given on local counselors precaution s reviewed (if thoughts of harming self or others occur call 911)encour aged healthy lifestylem ed check in 4-6 weeks Contracept ion care management 903401650 Z30.9 All BC methods discussedi nt in mirena IUDr/b/a reviewedha ndout givencall with next period for insertion Time spent in visit is a total of 25 mins with at least 50% of visit consisting of counseling and review of plan of care. [id number] Kai Quiñones MD [place] [address],[place] [address] 02/17/2024 09:20:20 02/17/2024 09:51:42 screening 077784146 Z36.87 Z3A.01 [id number] Zara Larsen CNM [place] [address],[place] [address] 02/17/2024 09:20:46 02/17/2024 10:11:25 Amenorrhea 46852364 N91.2 Venereal d isease screening 572528771 Z11.3 Irregular periods 968874 07 N92.6 +UPTcheck labsrepeat US next week [id number] Kai Quiñones MD [place] [address] [place] [address] 02/24/2024 16:59:13 02/25/2024 12:22:45 [id number] Zara Larsen CNM [place] [address] [place] [address] 02/24/2024 17:20:28 02/25/2024 12:22:04 Amenorrhea 77695644 N91.2 reviewed precaution s and educationp ap not collectedp renatal vitamin dailyf/u new ob and first look10 week NIPS Venereal d isease screening 871282597 Z11.3 [id number] Kai Quiñones MD [place] [address],[place] [address] 03/23/2024 15:25:22 03/23/2024 16:07:52 [id number] [facility] [address],[place] [address] 03/23/2024 15:26:19 03/23/2024 16:49:42 Gestation period, 10 weeks 45827947 Z3A.10 continue vitamin Routine an tenatal care 057690149 Z34.93 [id number] Kai Quiñones MD [place] [address],[place] [address] 04/05/2024 15:34:31 04/05/2024 16:06:40 screening 509637997 Z36.82 Z3A.12 [id number] [facility] [address],[place] [address] 04/20/2024 17:44:51 04/21/2024 07:48:39 Gestation period, 14 weeks 32186143 Z3A.14 continue vitamin [id number] Zara Larsen CNM [place] [address],[place] [address] 05/13/2024 15:01:43 05/13/2024 16:04:03 Gestation period, 17 weeks 88012223 Z3A.17 continue vitamin [id number] Kai Quiñones MD [place] [address],[place] [address] 06/01/2024 16:46:08 06/02/2024 12:58:40 screening for malformation 461949188 Z36.3 Z3A.20 [id number] Zara Larsen CNM [place] [address] [address],[place] [address] 06/01/2024 16:46:26 06/02/2024 12:24:19 Gestation period, 20 weeks 99452151 Z3A.20 continue vitamin [id number] Kai Quiñones MD [facility] [address],[place] [address] 06/29/2024 15:19:21 06/29/2024 16:09:46 screening 284307763 Z36.2 Z3A.24 [id number] FAYE EDWARD MD [facility] [address],[place] [address] 06/29/2024 15:19:41 06/29/2024 16:30:44 Mixed anxiety and depressive disorder 344045688 F41.8 - mood stable- no meds Gestation period, 24 weeks 736949291 Z3A.24 - continue PNV [id number] [facility] [address],[place] [address] 07/27/2024 16:26:41 07/27/2024 17:12:31 Gestation period, 28 weeks 34594726 Z3A.28 continue vitamin [id number] Zara Larsen CNM [facility] [address],[place] [address] 08/12/2024 15:57:23 08/15/2024 05:45:48 Gestation period, 30 weeks 94743864 Z3A.30 Toothache 85434576 K08.8 9 [id number] Kai Quiñones MD [facility] [address],[place] [address] 08/26/2024 11:09:29 08/26/2024 12:37:02 Large for gestation age fetus 199874170 O36.63X0 Z3A.32 [id number] [facility] [address],[place] [address] 08/26/2024 11:09:45 08/26/2024 13:30:17 Gestation period, 32 weeks 2787689 Z3A.32 continue vitamin [id number] Kai Quiñones MD [facility] [address],[place] [address] 09/02/2024 14:13:54 09/02/2024 17:01:24 Suspected abnormality affecting management of mother [id number] O35.8XX0 Z3A.33 [id number] Zara Larsen CNM [facility] [address],[place] [address] 09/02/2024 14:14:16 09/02/2024 16:24:22 Gestation period, 33 weeks 48909788 Z3A.33 continue vitamin [id number] Zara Larsen CNM [facility] [address],[place] [address] 11/04/2024 13:45:51 11/17/2024 09:12:39 [id number] Zara Larsen CNM [facility] [address],[place] [address] 11/11/2024 13:23:35 11/11/2024 14:11:53 care status 643950094 Z39.2 1954329 normal pp exam Surveillan ce of depot contraception 613123320 Z30.42 648349 reviewed side effects risks and benefits including weight gainf/u 6 mo wwe Health Concerns Section Related Observation LastModified by Organization Detai ls LastModified Time None Recorded Concern Status LastModified by Organization Details LastModified Time None Recorded Advance Directives Directive N: Payers Insurance Date Sequence Insurance Name Policy Number Policy Chapa Covered Member ID Chapa Member ID Guarantor Name 01/31/2025 1 [facility] (MEDICAID HMO) [id number] Zully Higuera [id number] Zully Higuera Notes Date Note Type Note Provider Name and Address Organization Details Recorded Time 5 text/html Generic HPI TemplateReported by Patient Zara aLrsen CNM [address], [place], [address], [facility] 09/02/2024 16:11:05 5 text/html VisitReported by PatientHPIFor quality, patient reportsnsvd. For context, patient reportscomplications of : none,complications of labor: none, complications: none,good support from partner/family, andresumed menstrual bleeding no(good support from mom). For associated symptoms, patient reportsno abnormal bleeding,no vaginal discharge,no pelvic pain,no constipation,no fecal incontinence,no dysuria,no urinary incontinence, andnormal mood. For contraception plan, patient reportsdepo-provera.ROS as noted in the HPI Lolita Costello [facility], [facility] 11/12/2024 08:44:37 OBGyn Episode Ob Episode Information Episode Created Date Number of Fetuses Patient Bloodtype Patient rh Status Prepregnancy Weight lbs Domestic Partner Domestic Partner Phone Father Name Product Development Assistant Status 01/05/20 21 1 AB Positive 169 CLOSED Fetus Data First Name Last Name Admitted to NICU Weight (g) Sex Living Outcome Pediatric Complications Fetus ID Race Codes Race Delivery Type Paisle y 3543.68 75 F true Full Term [id number] Vaginal Delivery Problems Problem Notes Robbins pt!declines COVID vac cine Problem Name Start Date End Date Resolution Snomed Code Not e Asthma 383962742 Teenage 01/30/2021 [id number] Iron deficiency anemia of 05/15/20211991999690904 IV iron - 05/24 , r/s 06/03 inf to 06/04or24 @ [facility] Edward Calculation Initial Edward Date Initial [...] Date Ultra Sound Latest Days Gestation 0 [email or web address] 01/04/2021 07/12/20 21 0 Pre- Flowsheet Flowsheet Date 01/04/2021 Alexander Score Blood Edema Fundus Height Fundus Units Glucose Ketones Leukocytes Nitrite Labor Signs Protein Cervic Dilation Cervic Effacement Cervic Station neg none trace Type Weight in lbs Pre/Post Dialysis Refused Weight 159.160541741522 BP Diastolic BP Location Tested BP Systolic BP Type 75 124 Fetus Heart Rate Present A 160 Fetus Movement A No Comments Katy is a 15yo G1 at 13 w eebetzaida who presents for care. Labs and NIPT [...] Weight in lbs Pre/Post Dialysis Refused Weight 157.598993390543 BP Diastolic BP Location Tested BP Systolic [...] Weight in lbs Pre/Post Dialysis Refused Weight 160.671898811074 BP Diastolic BP Location Tested BP Systolic [...] Weight in lbs Pre/Post Dialysis Refused Weight 168.652261798100 BP Diastolic BP Location Tested BP Systolic [...] Weight in lbs Pre/Post Dialysis Refused Weight 170.868108110389 BP Diastolic BP Location Tested BP Systolic [...] Weight in lbs Pre/Post Dialysis Refused Weight 173.464325992901 BP Diastolic BP Location Tested BP Systolic [...] Weight in lbs Pre/Post Dialysis Refused Weight 177.151092404392 BP Diastolic BP Location Tested BP Systolic [...] Weight in lbs Pre/Post Dialysis Refused Weight 181.798983525858 BP Diastolic BP Location Tested BP Systolic [...] Weight in lbs Pre/Post Dialysis Refused Weight 179.820933969415 BP Diastolic BP Location Tested BP Systolic [...] Weight in lbs Pre/Post Dialysis Refused Weight 180.490131187093 BP Diastolic BP Location Tested BP Systolic [...] Weight in lbs Pre/Post Dialysis Refused Weight 180.914037593403 BP Diastolic BP Location Tested BP Systolic [...] Estim ated Date of Delivery false Thalassemia (Cook Islander, Arabic, Mediterranean, Or Background): MCV < 80 false Neural Tube Defect (Meningomyelocele, Spina Bifi da, Or Anencephaly) false Congenital Heart Defect false Down Syndrome false Frank-Sachs (eg, Islam, Cajun, Colombian-Malagasy) f alse Armando Disease false Sickle Cell Disease Or Trait () false Hemophilia Or Other Blood Disorders false Muscular Dystrophy false Cystic Fibrosis false [place]'s Chorea false Intellectual Disability/Autism false If Yes, [...] 1 Sponta neous [facility]-Ep idural 38.2 false Kate Mckeon CNM Iron Deficienc y Anemia Discharge Information Feeding Method Contraceptive Method Maternal HG B and HCT Levels Ob Episode Information Episode Created Date Number of Fetuses Patient Bloodtype Patient rh Status Prepregnancy Weight lbs Domestic Partner Domestic Partner Phone Father Name Product Development Assistant Status 09/16/19 23 1 AB Positive 174 CLOSED Fetus Data First Name Last Name Admitted to NICU Weight (g) Sex Living Outcome Pediatric Complications Fetus ID Race Codes Race Delivery Type Adalyn 3713.78 45 F true Full Term bodyx1, EIF 98303 Vaginal Delivery Problems Problem Notes Robbins pt Problem Name Start Date End Date Resolution Snomed Code Not e Anxiety in 559849018 52139 declines meds ultrasound scan abnormal [id number] EIF Large for gestation age fetus 96% 32w, 94%/97 % AC at 36w) Anemia 032296434 Iv iron or ernesto sent 01/19 and labs completed Hypothyroidism 01/19/2023 MEDICATION [id number] lev o 25mcg Edward Calculation Initial Edward [...] Date Ultra Sound Latest Days Gestation 0 [email or web address] 09/15/2022 03/30/20 23 0 Pre- Flowsheet Flowsheet Date 09/15/2022 Alexander Score Blood Edema Fundus Height Fundus Units Glucose Ketones Leukocytes Nitrite Labor Signs Protein Cervic Dilation Cervic Effacement Cervic Station neg none none trace Type Weight in lbs Pre/Post Dialysis Refused Weight 176.261043426931 BP Diastolic BP Location Tested BP Systolic [...] Weight in lbs Pre/Post Dialysis Refused Weight 176.629544428699 BP Diastolic BP Location Tested BP Systolic [...] Weight in lbs Pre/Post Dialysis Refused Weight 177.691722344607 BP Diastolic BP Location Tested BP Systolic [...] Weight in lbs Pre/Post Dialysis Refused Weight 177.035559819432 BP Diastolic BP Location Tested BP Systolic [...] Weight in lbs Pre/Post Dialysis Refused Weight 183.586515993238 BP Diastolic BP Location Tested BP Systolic [...] Weight in lbs Pre/Post Dialysis Refused Weight 183.218183397661 BP Diastolic BP Location Tested BP Systolic [...] Weight in lbs Pre/Post Dialysis Refused Weight 188.253569805358 BP Diastolic BP Location Tested BP Systolic BP Type 69 110 Fetus Heart Rate Present A 135 Fetus Movement A Yes Comments Doing ok. US today 96%, AC 9 8%. Last baby was713. IV iron starting . Has not done Tdap yet, encouraged. Precautions given. Flowsheet Date 02/16/2023 Alexander Score Blood Edema Fundus Height Fundus Units Glucose Ketones Leukocytes Nitrite Labor Signs Protein Cervic Dilation Cervic Effacement Cervic Station neg none 36 none trace Type Weight in lbs Pre/Post Dialysis Refused Weight 187.510625416352 BP Diastolic BP Location Tested BP Systolic [...] Weight in lbs Pre/Post Dialysis Refused Weight 191.827238600440 BP Diastolic BP Location Tested BP Systolic [...] Weight in lbs Pre/Post Dialysis Refused Weight 192.469926189235 BP Diastolic BP Location Tested BP Systolic [...] Estim ated Date of Delivery false Thalassemia (Cook Islander, Arabic, Mediterranean, Or Background): MCV < 80 false Neural Tube Defect (Meningomyelocele, Spina Bifi da, Or Anencephaly) false Congenital Heart Defect false Down Syndrome false Frank-Sachs (eg, Islam, Cajun, Colombian-Malagasy) f alse Armando Disease false Sickle Cell Disease Or Trait () false Hemophilia Or Other Blood Disorders false Muscular Dystrophy false Cystic Fibrosis false [place]'s Chorea false Intellectual Disability/Autism false If Yes, [...] Post Complications Tubal Sterilization Discharge Date Comments Nela layton [facility]-Ep idural 37.3 false Zara Larsen CNFei Anemia, Anxiety in , Hypothyro idism, Large for gestation age fetus Discharge Information Feeding Method Contraceptive Method Maternal HG B and HCT Levels Ob Episode Information Episode Created Date Number of Fetuses Patient Bloodtype Patient rh Status Prepregnancy Weight lbs Domestic Partner Domestic Partner Phone Father Name Product Development Assistant Status 03/23/20 24 1 AB Positive 170 CLOSED Fetus Data First Name Last Name Admitted to NICU Weight (g) Sex Living Outcome Pediatric Complications Fetus ID Race Codes Race Delivery Type 3657.08 55 M true Prematur e 69115 Problems Problem Notes Problem Name Start Date End Date Resolution Snomed Code Not e Anxiety 79898535 no current meds Large for gestation age fetus 335740147 history Edward Calculation Initial Edward Date Initial Exam Date Initial Exam Provider Initial Ultrasound Date Last Menstrual Period Date Ultra Sound Weeks Gestation 10/17/2024 02/24/2024 Zara Hernández 02/24/2024 6 Eighteen To Twenty Week Edward Update Ultra Sound Date Fundal Height At Umbil Quickening Date Ultra Sound Latest Weeks Gestation Final Edward Confirmed By Final Edward Confirmed Date Final Edward Date Ultra Sound Latest Days Gestation 0 0 Pre- Flowsheet Flowsheet Date 03/23/2024 Alexander Score Blood [...] Type Weight in lbs Pre/Post Dialysis Refused 160.770413155988 BP Diastolic BP Location Tested BP Systolic BP Type 75 118 Fetus Heart Rate Present Fetus Movement A No Comments Patient is having some nause a and vomiting. will call out darlene hx anxiety stopped sertraline does not want to [...] Type Weight in lbs Pre/Post Dialysis Refused 160.855509062807 BP Diastolic BP Location Tested BP Systolic [...] Type Weight in lbs Pre/Post Dialysis Refused 160.411413663935 BP Diastolic BP Location Tested BP Systolic [...] Type Weight in lbs Pre/Post Dialysis Refused 163.495383773882 BP Diastolic BP Location Tested BP Systolic [...] Type Weight in lbs Pre/Post Dialysis Refused 167.549646244409 BP Diastolic BP Location Tested BP Systolic [...] Type Weight in lbs Pre/Post Dialysis Refused 172.786797560086 BP Diastolic BP Location Tested BP Systolic [...] Type Weight in lbs Pre/Post Dialysis Refused 173.144993903103 BP Diastolic BP Location Tested BP Systolic [...] Type Weight in lbs Pre/Post Dialysis Refused 175.831941412471 BP Diastolic BP Location Tested BP Systolic [...] Type Weight in lbs Pre/Post Dialysis Refused 176.893056824164 BP Diastolic BP Location Tested BP Systolic [...] Post Complications Tubal Sterilization Discharge Date Comments 5 Augmen kinjal 36.3 true 6.46 Zara labor and delivery Discharge Information Feeding Method Contraceptive Method Maternal HG B and HCT Levels
--- NOTE | 2025-04-10 23:33 | ED_ITS ---
HPI - Female Genitourinary General Chief complaint: Vaginal Bleeding Stated complaint: preg vaginal bleed Time Seen by Provider: 04/10/25 22:12 Source: patient Mode of arrival: ambulatory Limitations: no limitations History of Present Illness HPI Narrative: Patient is a 19 y/o female who presents to the ED with c/o vaginal bleeding. Patient reports she missed her normal menstrual cycle this month. Is unsure exactly when her last normal cycle was. She took a test last week and yesterday, both of which were faintly positive. This would make her . She then developed vaginal bleeding this morning, described as bright red and chunky.Has not been saturating through pads. Denies heavy bleeding. Reports mild bilateral lower abdominal cramping. Denies nausea, vomiting, fevers. Related Data Home Medications ?Medication ?Instructions ?Recorded ?Confirmed ?Last Taken ?Type vit no.95-ferrous 1 tablet PO DAILY 06/13/21 09/22/24 09/22/24 History fumarate 28 mg-folic acid 800 mcg tablet () levothyroxine 25 mcg tablet 25 mcg PO DAILY 02/05/23 0 09/22/24 03/11/23 14:00 History ferrous sulfate 325 mg (65 mg 325 mg PO DAILY 09/22/24 09/22/24 09/21/24 History iron) tablet (Feosol) Allergies Allergy/AdvReac Type Severity Reaction Status Date / Time Sulfa (Sulfonamide Allergy Unknown Rash Verified 09/22/24 19:46 Antibiotics) Review of Systems 2 Review of Systems: All systems reviewed & are unremarkable except as noted in HPI. All systems reviewed & are unremarkable except as noted in HPI and below PMFSH Past Medical History Medical History Overweight (BMI 25.0-29.9) ADHD Hypothyroidism and not yet delivered Iron deficiency anemia during Family History Family History Mother Lupus Social History Social History Smoking status: Never smoker Second hand tobacco smoke exposure: No Substance use: never Do You Feel Safe in your Home?: No Lack of Transportation: No Lack of Food: Never True Current Housing: I Have Housing Concerned About Future Housing: No Difficulty Paying Gas/Electric Bills: No Difficulty Paying for Meds: No Currently Unemployed: No Education: High School Diploma/GED Difficulty w/ Childcare or Family Care: No Gender identity (if verbalized by the patient): Female Spiritual care concerns: No Exam 2 Narrative: GENERAL: Well appearing, obese with BMI of 32.6, non-toxic, in no acute distress. HEAD: Normocephalic, atraumatic. RESPIRATORY: Airway patent, respirations nonlabored. Clear to auscultation bilaterally, no rales, rhonchi, wheezing. CARDIOVASCULAR: Regular rate and rhythm without murmurs, rubs, or gallops. ABDOMINAL: Soft, mild diffuse tenderness throughout lower abdomen, nondistended. Normoactive BS. MUSCULOSKELETAL: Moves all extremities. No gross deformities. SKIN: Warm, dry, normal color. NEURO: A&O X3. Speech clear. PSYCHIATRIC: Appropriate mood and affect. Normal interaction. Course Vital Signs Vital signs: Vital Signs Temperature 98.6 F 04/11/25 00:26 Pulse Rate 88 04/11/25 00:26 Respiratory Rate 18 04/11/25 00:26 Blood Pressure 146/64 H 04/11/25 00:26 Pulse Oximetry 100 04/11/25 00:26 Temperature 98.6 F 04/11/25 00:26 Pulse Rate 88 04/11/25 00:26 Respiratory Rate 18 04/11/25 00:26 Blood Pressure 146/64 H 04/11/25 00:26 Pulse Oximetry 100 04/11/25 00:26 MDM - Female Genitourinary MDM Narrative Medical decision making narrative: Patient presented to ED with faintly positive home test X2 with onset of light vaginal bleeding this morning. Unsure exactly of LNMP. . Vital signs stable upon arrival. Patient in no acute distress. Cbc without leukocytosis or significant anemia. CMP unremarkable. Beta hCG is undetectable here. UA without signs of infection. Discussed laboratory findings with patient, likelihood of normal menstrual cycle occurring presently. Safe for discharge home. Discussed bleeding precautions, recommended follow-up with OBGYN as needed. Given return precautions. Discharged in stable condition. Medical Records Attestation: I reviewed the patient's medical records. Lab Data Attestation: I reviewed the patient's lab results. 04/10/25 22:35 04/10/25 22:35 Labs: Lab Results 04/10/25 04/11/25 Range/Units 22:35 00:02 WBC 9.4 (4.5-10.0) K/mm3 RBC 4.38 (4.2-5.4) M/mm3 Hgb 11.1 L (12.0-15.0) g/dL Hct 35.4 L (37.0-47.0) % MCV 80.8 (80-100) fl MCH 25.3 L (26-34) pg MCHC 31.4 L (32-36) g/dl RDW 14.9 H (11.5-14.5) % Plt Count 325 (150-375) k/mm3 MPV 10.8 H (7.4-10.4) fl Immature Gran % (Auto) 0.3 (0-0.5) % Neut % (Auto) 68.0 (45.5-73.1) % Lymph % (Auto) 23.2 (18.3-44.2) % [place] % (Auto) 7.0 (2.6-8.5) % Eos % (Auto) 1.1 (0-4.4) % Baso % (Auto) 0.4 (0.2-1.2) % Lymph # (Auto) 2.18 (0.9-3.2) K/mm3 [place] # (Auto) 0.7 H (0.1-0.6) K/mm3 Eos # (Auto) 0.1 (0-0.3) K/mm3 Baso # (Auto) 0.0 (0.0-0.1) K/mm3 Abs Immat Gran (auto) 0.03 (0.00-0.031) K/mm3 Absolute Neuts (auto) 6.4 (1.3-6.7) K/mm3 Absolute Nucleated RBC 0.000 (0.0-0.012) K/mm3 Nucleated RBC % 0.0 (0.0-0.2) % PT 13.4 (11.1-14.7) Seconds INR 1.0 APTT 30.2 (22.3-36.8) Seconds Sodium 137 (137-145) mmol/L Potassium 4.1 (3.4-5.0) mmol/L Chloride 103 (98-107) mmol/L Carbon Dioxide 25 (22-30) mmol/L Anion Gap 9 (4-12) mmol/L BUN 12 (7-17) mg/dL Creatinine 0.70 (0.7-1.0) mg/dL Estim Creat Clear Calc 100 ml/min Estimated GFR > 60 (59 - ) Glucose 92 (65-110) mg/dL Calcium 8.9 (8.4-10.2) mg/dL Total Bilirubin 0.4 (0.2-1.3) mg/dL AST 27 (14-36) U/L ALT 23 (6-35) U/L Alkaline Phosphatase 80 (38-126) U/L Total Protein 8.5 H (6.3-8.2) g/dL Albumin 4.5 (3.5-5.1) g/dL Beta HCG, Quant < 2.39 mIU/ML Urine Color Yellow (Yellow) Urine Appearance Clear (Clear) Urine pH 7.0 (5.0-9.0) Ur Specific [place] 1.021 (1.001-1.035) Urine Protein Negative (Negative) mg/dL Urine Glucose (UA) Negative (Negative) mg/dL Urine Ketones Negative (Negative) mg/dL Ur Blood (Man) 2+ H (Negative) Urine Nitrate Negative (Negative) Urine Bilirubin Negative (Negative) Urine Urobilinogen 1.0 (<2.0) mg/dL Leukocyte Esterase Rfl Trace H (Negative) FLORA/UL Urine RBC 0-2 (0-2) /hpf Urine WBC 0-5 (0-3) /hpf Ur Squamous Epith Cells Few (Few) /hpf Urine Bacteria 1+ H /hpf Urine Casts 0-2 Blood Type AB Positive Antibody Screen Negative Screen Not Reportable Baby's Blood Type Not Reportable Baby's BEVERLEY Not Reportable Doses of RhIg Required 0 Discharge Plan Discharge Clinical Impression: Dysfunctional uterine bleeding Patient Disposition: Home Condition: Stable Instructions: Antibiotic Form, Abnormal (Dysfunctional) Uterine Bleeding (ED) Additional Instructions: Your testing was negative here today. You are likely experiencing your normal menstrual cycle. Continue to monitor bleeding. Follow-up with your OBGYN for further evaluation if needed. Return to ED for worsening or severe bleeding or pain, dizziness, passing out, or any other symptoms of concern. Patient Language: Tamazight Prescriptions: No Action levothyroxine 25 mcg tablet 25 mcg PO DAILY PNV no.95-ferrous fumarate-FA [] 28 mg iron- 800 mcg Tablet 1 tablet PO DAILY ferrous sulfate [Feosol] 325 mg (65 mg iron) tablet 325 mg PO DAILY Follow-up/Referrals: UNKNOWN,DOCTOR [Primary Care Provider] Time of Disposition: 00:47
[2025-04-11 00:20] LABS: Add Urine Microscopic? YES; Appearance Urine Clear (Clear); Glucose Urine UA Negative (Negative); Leukocyte Esterase Ur Trace LEU/UL (Negative); Nitrate Urine Negative (Negative); Non Pathogenic Casts 0-2; Specific Grav Ur 1.021 (1.001-1.035)
[2025-04-11 00:26] VITALS: BP 146/64; PULSE 88; RESP 18; TEMP 37; O2SAT 100
== END 2025-04-11 00:58 | disposition home or self-care (01) ==
PROVIDERS: Emergency Provider Physician Assistant
DX: N93.8 Other specified abnormal uterine and vaginal bleeding (principal); E03.9 Hypothyroidism, unspecified; Z79.899 Other long term (current) drug therapy
CPT/HCPCS: 36415; 80053; 81001; 84702; 85025; 85461; 85610; 85730; 86850; 86900; 86901; 99283